=== PATIENT | male | born 1975 | race African-American/Black ===

== ENCOUNTER 2019-11-27 14:38 | Inpatient (IN) | payer OTHER ==
--- NOTE | 2019-11-27 15:06 | PDOC ---
History of Present Illness - General Chief Complaint: Blood Sugar Problem Stated Complaint: BLOOD SUGAR PROBLEM Time Seen by Provider: 11/27/19 15:04 History Source: Patient Exam Limitations: No Limitations - History of Present Illness Initial Comments: 11/27/19 15:06 44yM w PMHx HTN, morbid obesity presenting w 2wk generalized weakness, polyuria, polydipsia, persistent mild lower abd pain. Doesn't remember when he last had a BM. Had T2DM in the past, stopped taking meds because A1C was low and glucose well controlled. EMS on scene measured BG above limits >600. Denies fever, vomiting, chest pain, SOB, dysuria. Past History - Medical History Allergies/Adverse Reactions: Allergies Allergy/AdvReac Type Severity Reaction Status Date / Time No Known Allergies Allergy Verified 11/27/19 16:18 - Psycho-Social/Smoking History Smoking History: Never smoked - Substance Abuse Hx (Audit-C & DAST Scrn) How often the patient has a drink containing alcohol: Never Score: In Men: 4 or > Positive; In Women: 3 or > Positive: 0 Screen Result (Pos requires Nsg. Audit-10AR): Negative Review of Systems - Review of Systems Constitutional: No: Chills, Fever HEENTM: No: Eye Pain, Nose Pain Respiratory: No: Cough, Shortness of Breath Cardiac (ROS): No: Chest Pain, Lightheadedness ABD/GI: Yes: Constipated, Nausea. No: Diarrhea, Vomiting : Yes: Frequency. No: Burning, Dysuria Musculoskeletal: No: Back Pain, Joint Pain Integumentary: No: Bruising, Dryness Neurological: No: Headache, Seizure Psychiatric: No: Anxiety, Depression Endocrine: No: Intolerance to Cold, Intolerance to Heat Hematologic/Lymphatic: No: Anemia, Blood Clots *Physical Exam - Vital Signs Last Vital Signs Temp Pulse Resp BP Pulse Ox 98 F 120 H 26 H 125/62 96 11/27/19 14:46 11/27/19 14:46 11/27/19 14:46 11/27/19 14:46 11/27/19 14:46 - Physical Exam General Appearance: Yes: Nourished, Appropriately Dressed, Mild Distress HEENT: positive: EOMI, CALIN, Normal Voice, Hearing Grossly Normal. negative: Scleral Icterus (R), Scleral Icterus (L) Respiratory/Chest: positive: Lungs Clear, Normal Breath Sounds, Rapid RR. negative: Chest Tender, Respiratory Distress, Crackles, Rales, Rhonchi, Stridor, Wheezing Cardiovascular: positive: Regular Rhythm, S1, S2, Tachycardia. negative: Murmur Gastrointestinal/Abdominal: positive: Normal Bowel Sounds, Tender (mild diffuse lower), Flat, Soft, Other (L groin purulent discharge) Extremity: positive: Delayed Capillary Refill Integumentary: positive: Normal Color, Dry, Warm. negative: Rash Neurologic: positive: Fully Oriented, Alert, Normal Mood/Affect, Normal Response, Responsive ED Treatment Course - LABORATORY CBC & Chemistry Diagram: 11/27/19 16:33 11/27/19 16:33 Medical Decision Making - Medical Decision Making 11/27/19 15:45 EKG - sinus tachycardia, HR 114, QTc 454, no ST changes CXR - cardiomegaly, clear lung barron CT A/P WBC 12, pH 7.31, ketone 76, K 5.8 hemolyzed --- 44yM w PMHx HTN, morbid obesity presenting w 2wk generalized weakness, polyuria, polydipsia, persistent mild lower abd pain Sepsis 2/2 purulent L groin infection vs hyperglycemia BG 606. Also has BECCA Cr 1.6 likely d/t dehydration. No evidence of DKA (pH>7.3, bicarb>18) vs PNA (clear XR) vs ACS (neg trop) K 5.8 hemolyzed Given 3L fluids, vanc, zosyn, zofran, 10 insulin Admit tele hospitalist for sepsis, hyperglycemia BECCA No PCP Signed out to night team - pending CT A/P for abd pain - repeat BMP (check hemolyzed K) at 19:00, BGM q2h Discharge - Discharge Information Problems reviewed: Yes Clinical Impression/Diagnosis: Infection, Hyperglycemia, BECCA (acute kidney injury) Sepsis Qualifiers: Sepsis type: sepsis due to unspecified organism Sepsis acute organ dysfunction status: unspecified Qualified Code(s): A41.9 - Sepsis, unspecified organism Condition: Improved - Follow up/Referral - Patient Discharge Instructions - Post Discharge Activity
[2019-11-27] MEDS ORDERED: SODIUM CHLORIDE 0.9% 500 ML INFUS.BAG IV ONE (15:17)
[2019-11-27] MEDS ORDERED: ONDANSETRON 4 MG/2 ML VIAL IVPUSH ONE ×2 (15:19→19:52)
[2019-11-27] MEDS ORDERED: VANCOMYCIN 1 GM in D5W (PRE-DOCKED) 1,000 MG/250 ML IVPB ONE (15:19)
[2019-11-27] MEDS ORDERED: PIPERACILLIN/TAZOB 4.5 GM 4.5 GM in DEXTROSE 5%-WATER 100 ML IVPB ONE (15:19)
[2019-11-27] MEDS ORDERED: morphine CARPU-JECT 4 MG/1 ML DISP.SYRIN IVPUSH ONE (15:49)
[2019-11-27] MEDS ORDERED: TAZOB IVPB ONE (15:49)
[2019-11-27] MEDS ORDERED: PIPERACILLIN IVPB ONE (15:49)
[2019-11-27] MEDS ORDERED: VANCOMYCIN 500 MG VIAL (RESTRICTED TO ID ONLY) ONE (15:49)
[2019-11-27] MEDS ORDERED: ONDANSETRON *ODT* 4 MG TABLET ONE (15:49)
--- NOTE | 2019-11-27 17:00 | PDOC ---
Documentation entered by Karla Bianchi SCRIBE, acting as scribe for Óscar Rosario MD. Óscar Rosario MD: This documentation has been prepared by the Arias zabala Xhesika, SCRIBE, under my direction and personally reviewed by me in its entirety. I confirm that the documentation accurately reflects all work, treatment, procedures, and medical decision making performed by me. Attending Attestation - Resident Resident Name: Ander Jimenez - ED Attending Attestation I have performed the following: I have examined & evaluated the patient, The case was reviewed & discussed with the resident, I agree w/resident's findings & plan, Exceptions are as noted - HPI HPI: 11/27/19 15:13 The patient is a 44y/o M with a pmh of T2DM (stopped taking meds because A1C was low and glucose well controlled) and morbid obesity who presents to the ED with 2 weeks of generalized weakness, polyuria, excessive thirst, and lower abdominal pain. Pt notes that today he checked his sugar and found it to be too high to register on the machine. Pt denies chest pain, SOB, headache or dizziness. Denies fevers, chills, cough, N/V/D. Denies any other complaints. Allergies: NKDA - Physicial Exam PE: 11/27/19 17:01 See resident exam - Critical Care Time Total Critical Care Time: 30 Critical Care Statement: The care of this patient involved high complexity decision making to prevent further life threatening deterioration of the patient's condition and/or to evaluate & treat vital organ system(s) failure or risk of failure. - Medical Decision Making 11/27/19 17:01 44 M with elevated sugar, suspect DKA. Also evaluate for infectious process. - Labs, Ketones, VBG - CTAP - IVF, insulin as needed 11/27/19 17:52 Pt with glucose 606, AG 17, no acidosis on VBG, + ketones Likely mild DKA Will administer insulin 10mg IV and continue IV hydration Discharge - Discharge Information Problems reviewed: Yes Clinical Impression/Diagnosis: Infection, Hyperglycemia, BECCA (acute kidney injury) Sepsis Qualifiers: Sepsis type: sepsis due to unspecified organism Sepsis acute organ dysfunction status: unspecified Qualified Code(s): A41.9 - Sepsis, unspecified organism Condition: Stable - Follow up/Referral - Patient Discharge Instructions - Post Discharge Activity
[2019-11-27 17:09] LABS: VENOUS BASE EXCESS -8.7 mmol/L (-2-2); VENOUS O2 SATURATION 52.8 % (70-80); VENOUS PCO2 33.1 mmHg (38-52); VENOUS PH 7.317 (7.310-7.410)
[2019-11-27 17:17] LABS: BASO % 0.3 % (0-2.0); EOS % 0.3 % (0-4.5); HEMATOCRIT 38.8 % (35.4-49); HEMOGLOBIN 12.3 GM/dL (11.7-16.9); INR 1.09 (0.83-1.09); LYMPH % 11.5 % (8-40); MCH 27.3 pg (25.7-33.7); MCHC 31.6 g/dl (32.0-35.9); MEAN CELL VOLUME 86.4 fl (80-96); MEAN PLT VOLUME 9.1 fl (7.5-11.1); MONO % 10.9 % (3.8-10.2); PLATELET COUNT 426 K/MM3 (134-434); PROTHROMBIN TIME (PATIENT) 12.9 SEC (9.7-13.0); RBC 4.48 M/mm3 (4.00-5.60); RDW 14.4 % (11.9-15.9); WHITE BLOOD COUNT 12.5 K/mm3 (4.0-10.0)
[2019-11-27 17:19] LABS: ACTIVATED PTT 23.8 SECONDS (25.2-36.5)
[2019-11-27 17:43] LABS: BILIRUBIN,TOTAL 0.4 mg/dL (0.2-1); BLOOD UREA NITROGEN 18.2 mg/dL (7-18); CALCIUM 9.6 mg/dL (8.5-10.1); CREATININE 1.6 mg/dL (0.55-1.3); POTASSIUM 5.8 mmol/L (3.5-5.1); TOT PROT 9.2 g/dl (6.4-8.2)
[2019-11-27] MEDS ORDERED: INSULIN REGULAR HUMAN 100 UNITS/ML *VIAL IVPUSH ONE (17:48)
[2019-11-27] MEDS ORDERED: LACTATED RINGERS SOLUTION 1000 ML INFUS.BAG IV ONE (17:48)
[2019-11-27] MEDS ORDERED: INSULIN REGULAR HUMAN 100 UNITS/ML *VIAL ONE (18:10)
--- NOTE | 2019-11-27 19:39 | PDOC ---
*Physical Exam - Vital Signs Last Vital Signs Temp Pulse Resp BP Pulse Ox 98 F 111 H 24 H 122/67 96 11/27/19 14:46 11/27/19 16:55 11/27/19 17:04 11/27/19 17:04 11/27/19 14:46 ED Treatment Course - LABORATORY CBC & Chemistry Diagram: 11/27/19 16:33 11/28/19 04:00 - ADDITIONAL ORDERS Additional order review: Laboratory Results 11/27/19 11/27/19 11/27/19 16:34 16:33 16:33 PT with INR INR PTT (Actin FS) VBG pH 7.317 POC VBG pCO2 33.1 L POC VBG pO2 30.0 VBG HCO3 16.6 L VBG O2 Sat (Emmanuel) 52.8 L VBG Base Excess -8.7 L Sodium 133 L Potassium 5.8 H Chloride 98 Carbon Dioxide 19 L Anion Gap 17 H BUN 18.2 H Creatinine 1.6 H Est GFR (CKD-EPI)AfAm 59.00 Est GFR (CKD-EPI)NonAf 50.91 Random Glucose 606 H* Lactic Acid 2.0 Calcium 9.6 Total Bilirubin 0.4 AST 9 L ALT 12 L Alkaline Phosphatase 116 Troponin I Total Protein 9.2 H Albumin 2.0 L Beta-Hydroxybutyrate 76.7 H 11/27/19 11/27/19 16:33 16:33 PT with INR 12.90 INR 1.09 PTT (Actin FS) 23.8 L VBG pH POC VBG pCO2 POC VBG pO2 VBG HCO3 VBG O2 Sat (Emmanuel) VBG Base Excess Sodium Potassium Chloride Carbon Dioxide Anion Gap BUN Creatinine Est GFR (CKD-EPI)AfAm Est GFR (CKD-EPI)NonAf Random Glucose Lactic Acid Calcium Total Bilirubin AST ALT Alkaline Phosphatase Troponin I < 0.02 Total Protein Albumin Beta-Hydroxybutyrate 11/27/19 16:33 RBC 4.48 MCV 86.4 MCHC 31.6 L RDW 14.4 MPV 9.1 Neutrophils % 77.0 Lymphocytes % 11.5 Monocytes % 10.9 H Eosinophils % 0.3 Basophils % 0.3 - Medications Given in the ED: ED Medications Discontinued Medications Generic Name Dose Route Start Last Admin Trade Name Freq PRN Reason Stop Dose Admin Piperacillin Sod/Tazobactam 100 mls @ 200 mls/hr 11/27/19 15:19 11/27/19 16:00 Sod 4.5 gm/ Dextrose IVPB 11/27/19 15:48 200 mls/hr ONCE ONE Administration Protocol Insulin Human Regular 10 units 11/27/19 17:48 11/27/19 18:16 Novolin R Vial *For Ivpush Or Iv Drip Only* IVPUSH 11/27/19 17:49 10 units ONCE ONE Administration Morphine Sulfate 4 mg 11/27/19 15:49 11/27/19 16:21 Morphine Injection - IVPUSH 11/27/19 15:50 Not Given ONCE ONE Ondansetron HCl 4 mg 11/27/19 15:19 11/27/19 16:05 Zofran Injection IVPUSH 11/27/19 15:20 4 mg ONCE ONE Administration Sodium Chloride 2,000 ml 11/27/19 15:17 11/27/19 15:54 Normal Saline - IV 11/27/19 15:18 2,000 ml ONCE ONE Administration Vancomycin HCl 1,000 mg 11/27/19 15:19 11/27/19 16:53 Vancomycin (Pre-Docked) IVPB 11/27/19 15:20 1,000 mg ONCE ONE Administration Protocol Medical Decision Making - Medical Decision Making 11/27/19 15:45 EKG - sinus tachycardia, HR 114, QTc 454, no ST changes CXR - cardiomegaly, clear lung barron CT A/P WBC 12, pH 7.31, ketone 76, K 5.8 hemolyzed --- 44M w PMHx HTN, morbid obesity presenting w 2wk generalized weakness, polyuria, polydipsia, persistent mild lower abd pain Sepsis 2/2 purulent L groin infection vs hyperglycemia BG 606. Also has BECCA Cr 1.6 likely d/t dehydration. No evidence of DKA (pH>7.3, bicarb>18) vs PNA (clear XR) vs ACS (neg trop) K 5.8 hemolyzed Given 3L fluids, vanc, zosyn, zofran, 10 insulin Admit tele hospitalist for sepsis, hyperglycemia BECCA No PCP Signed out from day team CT abdomen/pelvis demonstrates multiple upper thigh subcutaneous lesions consistent with abscess formation, with the largest diameter at 3cm. Incision and drainage was completed on 5 abscesses of the superiomedial legs bilaterally (3 right, 2 left), with purulent drainage. Patient admitted for possible sepsis secondary to multiple cutaneous abscesses, hyperglycemia, and BECCA. Discharge - Discharge Information Problems reviewed: Yes Clinical Impression/Diagnosis: Infection, Hyperglycemia, BECCA (acute kidney injury) Sepsis Qualifiers: Sepsis type: sepsis due to unspecified organism Sepsis acute organ dysfunction status: unspecified Qualified Code(s): A41.9 - Sepsis, unspecified organism Condition: Improved - Admission Yes - Follow up/Referral - Patient Discharge Instructions - Post Discharge Activity
[2019-11-27 20:29] LABS: URINE APPEARANCE CLEAR; URINE BILIRUBIN NEGATIVE (NEGATIVE); URINE COLOR YELLOW; URINE GLUCOSE (UA) 3+ (NEGATIVE); URINE KETONE 3+ (NEGATIVE); URINE LEUK ESTERASE NEGATIVE (NEGATIVE); URINE NITRITE NEGATIVE (NEGATIVE); URINE PROTEIN NEGATIVE (NEGATIVE); URINE UROBILINOGEN 0.2 mg/dL (0.2-1.0)
[2019-11-27 20:57] LABS: BLOOD UREA NITROGEN 15.6 mg/dL (7-18); CALCIUM 8.8 mg/dL (8.5-10.1); CREATININE 1.5 mg/dL (0.55-1.3); POTASSIUM 4.8 mmol/L (3.5-5.1)
[2019-11-27] MEDS ORDERED: LIDOCAINE 1%/EPI 1:100000 (50 ML MULTI DOSE VIAL) INF ONE (22:12)
[2019-11-27] MEDS ORDERED: LIDOCAINE 1%/EPI 1:100000 (20 ML MULTI DOSE VIAL) ONE (22:28)
--- NOTE | 2019-11-27 23:20 | PN ---
Teaching Attending Note Name of Resident: Teresa Adair ATTENDING PHYSICIAN STATEMENT I saw and evaluated the patient. I reviewed the resident's note and discussed the case with the resident. I agree with the resident's findings and plan as documented. SUBJECTIVE: Patient is a 44 year old man with a PMH of NIDDM (stopped taking meds because HbA1C was low and glucose well controlled) and Morbid obesity who presents to the ER with 2 weeks of generalized weakness, polyuria, excessive thirst, and lower abdominal pain. He checked his sugar today and found it to be too high to register on the machine. Patient denies chest pain, shortness of breath, headache, palpitations, dizziness, fever, chills, nausea, vomiting, diarrhea, constipation, dysuria, frequency, urgency, melena, hematochezia or hematuria. Denies alcohol, tobacco or illicit drug use. No sick contacts or recent travels. Family history DM in both parents. Patient states he was unaware of the left groin purulent discharge that was noted on arrival. OBJECTIVE: Alert and morbidly obese Vital Signs Period Temp Pulse Resp BP Sys/Chambers Pulse Ox Last 24 Hr 97.9 F-98 F 105-120 20-26 122-142/62-70 96-100 HEENT: No Jaundice, eye redness or discharge, PERRLA, EOMI. Normocephalic, atraumatic. External ears are normal and hearing is grossly intact. No nasal discharge. Neck: Supple, nontender. No palpable adenopathy or thyromegaly. No JVD Chest: Good effort. Clear to auscultation and percussion. Heart: Regular. No S3, rub or murmur Abdomen: Not distended, soft, lower abdominal tenderness and no HSM. No rebound or guarding. Normal bowel sounds. Ext: Peripheral pulses intact. No leg edema. Left groin purulent discharge. Skin: Warm and dry. No petechiae, rash or ecchymosis. Neuro: Alert. Oriented x3. CN 2-12 grossly intact. Sensation grossly intact in all four extremities and DTR are symmetric. Psych: Appropriate mood and affect. Good insight. Home Medications Medication Instructions Recorded NK [No Known Home Medication] 11/27/19 Abnormal Lab Results 11/27/19 11/27/19 11/27/19 16:33 16:33 16:33 WBC 12.5 H MCHC 31.6 L Absolute Neuts (auto) 9.6 H Monocytes % 10.9 H PTT (Actin FS) 23.8 L POC VBG pCO2 33.1 L VBG HCO3 16.6 L VBG O2 Sat (Emmanuel) 52.8 L VBG Base Excess -8.7 L Sodium Potassium Carbon Dioxide Anion Gap BUN Creatinine Random Glucose AST ALT Total Protein Albumin Beta-Hydroxybutyrate Urine Glucose (UA) Urine Ketones 11/27/19 11/27/19 11/27/19 16:33 19:55 19:55 WBC MCHC Absolute Neuts (auto) Monocytes % PTT (Actin FS) POC VBG pCO2 VBG HCO3 VBG O2 Sat (Emmanuel) VBG Base Excess Sodium 133 L Potassium 5.8 H Carbon Dioxide 19 L 19 L Anion Gap 17 H BUN 18.2 H Creatinine 1.6 H 1.5 H Random Glucose 606 H* 373 H AST 9 L ALT 12 L Total Protein 9.2 H Albumin 2.0 L Beta-Hydroxybutyrate 76.7 H Urine Glucose (UA) 3+ H Urine Ketones 3+ H Current Medications Generic Name Dose Route Start Last Admin Trade Name Freq PRN Reason Stop Dose Admin Heparin Sodium (Porcine) 5,000 unit 11/28/19 06:00 Heparin - SQ TID EDWIGE Sodium Chloride 1,000 mls @ 75 mls/hr 11/28/19 01:45 11/28/19 02:28 Normal Saline - IV 75 mls/hr ASDIR EDWIGE Administration Piperacillin Sod/Tazobactam 50 mls @ 100 mls/hr 11/28/19 01:48 Sod 3.375 gm/ Dextrose IVPB Q6H EDWIGE Protocol Piperacillin Sod/Tazobactam 50 mls @ 100 mls/hr 11/28/19 02:00 11/28/19 02:29 Sod 3.375 gm/ Dextrose IVPB 11/28/19 21:29 100 mls/hr Q6H-IV EDWIGE Administration Protocol Vancomycin HCl 1,250 mg/ 250 mls @ 166.667 mls/hr 11/28/19 04:00 Dextrose IVPB 11/28/19 17:29 Q12H EDWIGE Insulin Aspart 1 vial 11/28/19 07:00 Novolog Vial Sliding Scale - SQ ACHS [facility] Protocol Polyethylene Glycol 17 gm 11/28/19 01:46 Miralax (For Daily Use) - PO DAILY PRN CONSTIPATION Vancomycin HCl 1,000 mg 11/28/19 16:00 Vancomycin (Pre-Docked) IVPB DAILY EDWIGE Protocol ASSESSMENT AND PLAN: 1. Sepsis due to abdominal wall/upper thigh abscesses - CT abdomen/pelvis with IV contrast shows possible right lower anterior pelvis wall abscesses, upper thigh abscesses, fatty liver and enlarged inguinal lymphnodes. No acute abnormality on CXR. Electrolyte abnormalities resolved after he got IV insulin and IV NS in the ER. Sepsis workup done and patient started on IV Vancomycin, IV Zosyn and IV NS. Consult ID and Surgery. EKG shows sinus tachycardia at 114/minute and QTc [address]-T wave changes. Initial troponin is negative. Will avoid drugs that may prolong QTc. Treat constipation with Miralax 17 gm bid. Viral testing for COVID-19 ordered and patient placed on airborne, droplet and contact isolation. Will continue comprehensive care for all of patients comorbid conditions. 2. Mild DKA Improved after initial dose of IV insulin in the ER. Will get HbA1c, continue IV NS, monitor and replete potassium, implement sliding scale insulin regimen and consult Endocrine to craft an appropriate outpatient regime n. Provide comprehensive diabetes care with patient teaching and counseling about the importance of adherence to prescribed diabetes regimen, euglycemia, eye care and foot care. 3. Hypoalbuminemia - Possibly due to combined effects of malnutrition and inflammation associated with comorbid conditions. Will ensure adequate dietary protein intake and also consult tour leader. 4. BECCA Has risk factors for CKD. Likely dehydrated. Will get kidney sonogram, hydrate with IV NS, monitor urine output and consult Nephrology. Elevated globulins is unexplained - will monitor and get SPEP as well as urine protein/creatinine ratio. Avoid nephrotoxic agents such as NSAIDS, aminoglycosides, contrast dyes and certain Alternative medicine products. Will benefit from outpatient ACEI/ARB therapy. 5. Morbid obesity Counseled on the risks associated with obesity. Will provide patient all the necessary assistance, counseling and positive reinforcement to facilitate weight loss. Consult tour leader. 6. DVT prophylaxis - Heparin 5000u sq tid. 7. Advance directives - Full code
[2019-11-28] MEDS ORDERED: POLYETHYLENE GLYCOL 3350 119 GM BTL PO PRN (01:46)
[2019-11-28] MEDS ORDERED: DEXTROSE 5%-WATER - 50 ML IVPB ONE ×4 (02:15→20:42)
[2019-11-28] MEDS ORDERED: PIPERACILLIN/TAZOBACTAM 3.375 GM VIAL IVPB ONE ×4 (02:15→20:42)
[2019-11-28] MEDS: SODIUM CHLORIDE 1,000 ML IV SCH (02:28)
[2019-11-28] MEDS: PIPERACILLIN/TAZOB 3.375 GM 3.375 GM in DEXTROSE 5%-WATER - 50 ML IVPB SCH ×5 (02:29→21:39)
[2019-11-28 03:05] VITALS: BMI 53.8
--- NOTE | 2019-11-28 03:28 | HP ---
CHIEF COMPLAINT: 2 weeks of weakness, polyuria, polydipsia, lower abdominal pain PCP: unknown HISTORY OF PRESENT ILLNESS: Merlyn Reno is a 44 y/o male with a PMX if T2DM (currently on no meds for DM), hypertension, and morbid obesity who presents with 2 weeks of weakness, polyuria, polydipsia, lower abdominal pain, nausea, vomiting, constipation, dry mouth and lack of appetite. Patient states that he had similar symptoms when he was last hospitalized years ago and was subsquently diagnosed with diabetes. Patient is also presenting with a large draining abscess in his left groin. Patient denies past surgical history and states that he his currently not taking any medications. Patient endorses a history of DM in both his mother and father. ER course was notable for: (1) left groin abscess drainage (2) EKG done: sinus tachycardia. QTc 454 (3) vancomycin and zosyn abx given Recent Travel: none PAST MEDICAL HISTORY: -HTN -DM PAST SURGICAL HISTORY: -none Social History: Smoking:denies Alcohol: denies Drugs: denies Allergies Shellfish (Verified 11/27/19 16:18) HOME MEDICATIONS: Home Medications Medication Instructions Recorded NK [No Known Home Medication] 11/27/19 REVIEW OF SYSTEMS CONSTITUTIONAL: +weakness, loss of appetite, malaise Absent: fever, chills, diaphoresis, weight change HEENT: Absent: rhinorrhea, nasal congestion, throat pain, throat swelling, difficulty swallowing CARDIOVASCULAR: Absent: chest pain, syncope, palpitations, irregular heart rate, lightheadedness, peripheral edema RESPIRATORY: Absent: cough, shortness of breath, dyspnea with exertion, orthopnea, wheezing, stridor, hemoptysis GASTROINTESTINAL: + abdominal pain, + nausea, + vomiting, + constipation Absent: abdominal distension, melena, hematochezia GENITOURINARY: +frequency Absent: dysuria, urgency, hesitancy, hematuria, flank pain, genital pain MUSCULOSKELETAL: Absent: myalgia, arthralgia, joint swelling, back pain, neck pain SKIN: Absent: rash, itching, pallor HEMATOLOGIC/IMMUNOLOGIC: Absent: easy bleeding, easy bruising, lymphadenopathy, frequent infections ENDOCRINE: Absent: unexplained weight gain, unexplained weight loss, heat intolerance, cold intolerance NEUROLOGIC: Absent: headache, focal weakness or paresthesias, dizziness, unsteady gait, seizure, mental status changes, bladder or bowel incontinence PSYCHIATRIC: Absent: anxiety, depression, suicidal or homicidal ideation, hallucinations. PHYSICAL EXAMINATION Vital Signs - 24 hr 11/27/19 11/27/19 11/27/19 14:46 16:55 17:04 Temperature 98 F Pulse Rate 120 H Pulse Rate [ 111 H Apical] Respiratory 26 H 24 H Rate Blood Pressure 125/62 Blood Pressure 122/67 [Left Arm] O2 Sat by Pulse 96 Oximetry (%) 11/27/19 11/27/19 11/28/19 21:45 23:12 01:13 Temperature 97.9 F Pulse Rate Pulse Rate [ 108 H 105 H Apical] Respiratory 20 21 H Rate Blood Pressure Blood Pressure 142/65 132/70 [Left Arm] O2 Sat by Pulse 100 100 98 Oximetry (%) 11/28/19 11/28/19 01:31 03:05 Temperature 98.0 F 98.0 F Pulse Rate 109 H 112 H Pulse Rate [ Apical] Respiratory 20 20 Rate Blood Pressure 128/67 128/67 Blood Pressure [Left Arm] O2 Sat by Pulse 98 98 Oximetry (%) GENERAL: AAOx3, patient appears uncomfortable;morbidly obese habitus HEENT: NCAT, PERRLA, EOMI, sclera anicteric, conjunctiva clear, oropharynx clear w/o exudates. MMM. NECK: Normal ROM, supple, no lymphadenopathy, JVD, or masses LUNGS: CTABL no wheezes/ rhonchi/ rales. HEART: RRR, normal S1 S2, no M/R/G, peripheral pulses 2+ and equal b/l ABDOMEN: Soft, diffuse tenderness in the LLQ and RLQ, + BS. No guarding or rebound. No hepatomegaly or splenomegaly. MSK: ROM WNL EXTREMITIES: Normal inspection. No peripheral edema. No clubbing or cyanosis. NEUROLOGICAL: CN II-XII intact. Normal speech, normal gait, no focal sensorimotor deficits. SKIN: Warm, Dry, decreased skin turgor, draining abscess in left groin Laboratory Results - last 24 hr CBC, BMP 11/27/19 16:33 11/27/19 11/27/19 11/27/19 16:33 16:33 16:33 WBC 12.5 H RBC 4.48 Hgb 12.3 Hct 38.8 MCV 86.4 MCH 27.3 MCHC 31.6 L RDW 14.4 Plt Count 426 MPV 9.1 Absolute Neuts (auto) 9.6 H Neutrophils % 77.0 Lymphocytes % 11.5 Monocytes % 10.9 H Eosinophils % 0.3 Basophils % 0.3 Nucleated RBC % 0 PT with INR 12.90 INR 1.09 PTT (Actin FS) 23.8 L VBG pH POC VBG pCO2 POC VBG pO2 VBG HCO3 VBG O2 Sat (Emmanuel) VBG Base Excess Sodium Potassium Chloride Carbon Dioxide Anion Gap BUN Creatinine Est GFR (CKD-EPI)AfAm Est GFR (CKD-EPI)NonAf Random Glucose Lactic Acid Calcium Total Bilirubin AST ALT Alkaline Phosphatase Troponin I < 0.02 Total Protein Albumin Beta-Hydroxybutyrate Urine Color Urine Appearance Urine pH Ur Specific [place] Urine Protein Urine Glucose (UA) Urine Ketones Urine Blood Urine Nitrite Urine Bilirubin Urine Urobilinogen Ur Leukocyte Esterase Ur Random Sodium Ur Random Potassium Ur Random Chloride 11/27/19 11/27/19 11/27/19 16:33 16:33 16:34 WBC RBC Hgb Hct MCV MCH MCHC RDW Plt Count MPV Absolute Neuts (auto) Neutrophils % Lymphocytes % Monocytes % Eosinophils % Basophils % Nucleated RBC % PT with INR INR PTT (Actin FS) VBG pH 7.317 POC VBG pCO2 33.1 L POC VBG pO2 30.0 VBG HCO3 16.6 L VBG O2 Sat (Emmanuel) 52.8 L VBG Base Excess -8.7 L Sodium 133 L Potassium 5.8 H Chloride 98 Carbon Dioxide 19 L Anion Gap 17 H BUN 18.2 H Creatinine 1.6 H Est GFR (CKD-EPI)AfAm 59.00 Est GFR (CKD-EPI)NonAf 50.91 Random Glucose 606 H* Lactic Acid 2.0 Calcium 9.6 Total Bilirubin 0.4 AST 9 L ALT 12 L Alkaline Phosphatase 116 Troponin I Total Protein 9.2 H Albumin 2.0 L Beta-Hydroxybutyrate 76.7 H Urine Color Urine Appearance Urine pH Ur Specific [place] Urine Protein Urine Glucose (UA) Urine Ketones Urine Blood Urine Nitrite Urine Bilirubin Urine Urobilinogen Ur Leukocyte Esterase Ur Random Sodium Ur Random Potassium Ur Random Chloride 11/27/19 11/27/19 11/28/19 19:55 19:55 00:00 WBC RBC Hgb Hct MCV MCH MCHC RDW Plt Count MPV Absolute Neuts (auto) Neutrophils % Lymphocytes % Monocytes % Eosinophils % Basophils % Nucleated RBC % PT with INR INR PTT (Actin FS) VBG pH POC VBG pCO2 POC VBG pO2 VBG HCO3 VBG O2 Sat (Emmanuel) VBG Base Excess Sodium 138 Potassium 4.8 Chloride 104 Carbon Dioxide 19 L Anion Gap 15 BUN 15.6 Creatinine 1.5 H Est GFR (CKD-EPI)AfAm 63.79 Est GFR (CKD-EPI)NonAf 55.04 Random Glucose 373 H Lactic Acid Calcium 8.8 Total Bilirubin AST ALT Alkaline Phosphatase Troponin I Total Protein Albumin Beta-Hydroxybutyrate Urine Color Yellow Urine Appearance Clear Urine pH 5.0 Ur Specific [place] 1.031 Urine Protein Negative Urine Glucose (UA) 3+ H Urine Ketones 3+ H Urine Blood Negative Urine Nitrite Negative Urine Bilirubin Negative Urine Urobilinogen 0.2 Ur Leukocyte Esterase Negative Ur Random Sodium 38 L Ur Random Potassium 38.0 Ur Random Chloride 45 L ASSESSMENT/PLAN: 44 year old male with PMX HTN, DM2 presenting with 2 weeks of generalized weakness, polyuria, excessive thirst, and lower abdominal pain. Admitted for sepsis secondary to pelvic abscess. #Sepsis Secondary to Pelvic Abscess -CT abdomen/pelvis w/ contrast: possible right lower anterior pelvis wall abscesses, upper thigh abscesses, fatty liver and enlarged inguinal lymph nodes -IV abx: Zosyn and Vancomycin -surgery consult appreciated -ID consult appreciated -IVF started with NS -NPO -Miralax for constipation BID -QTc 454 upon admission -avoid QTC prolonging drugs #BECCA -IVF started with NS -Urine electroyles ordered -urine protein:Cr ordered -nephro consult appreciated -renal ultrasound ordered -SPEP ordered -searum protein electrophoresis ordered -pt will benefit from ACEI/ARB when discharged -Avoid nephrotoxic agents #Diabetes Mellitus -mild DKA upon admission which improved in the ER with IV insulin -ISS BGM ordered -HgA1c ordered -endocrine consult appreciated #Hypertension -monitor blood pressure readings #FEN -NS IVF ordered -monitor electrolytes -NPO #Prophylaxis -DVT: Heparin 5000u sq tid disposition: monitor in telemetry Family Medical History Family History: As Documented Visit type - Emergency Visit Emergency Visit: Yes ED Registration Date: 11/27/19 Care time: The patient presented to the Emergency Department on the above date and was hospitalized for further evaluation of their emergent condition. - New Patient This patient is new to me today: Yes Date on this admission: 11/28/19 - Critical Care Critical Care patient: No ATTENDING PHYSICIAN STATEMENT I saw and evaluated the patient. I reviewed the resident's note and discussed the case with the resident. I agree with the resident's findings and plan as documented. SUBJECTIVE: OBJECTIVE: ASSESSMENT AND PLAN:
[2019-11-28] MEDS: VANCOMYCIN HCL 1,250 MG in DEXTROSE 5%-WATER - 250 ML IVPB SCH ×2 (03:50→16:50)
[2019-11-28 04:55] LABS: BLOOD UREA NITROGEN 12.7 mg/dL (7-18); CALCIUM 8.9 mg/dL (8.5-10.1); CREATININE 1.2 mg/dL (0.55-1.3); POTASSIUM 5.1 mmol/L (3.5-5.1)
[2019-11-28] MEDS: INSULIN SLIDING SCALE (NOVOLOG) 1 VIAL SQ SCH ×5 (06:49→21:38)
[2019-11-28] MEDS: HEPARIN NA (PORCINE) 5,000 UNITS/ML 1ML VIAL SQ SCH ×3 (06:49→21:38)
[2019-11-28 08:23] LABS: BASO % 0.3 % (0-2.0); EOS % 0.7 % (0-4.5); HEMATOCRIT 35.3 % (35.4-49); HEMOGLOBIN 11.5 GM/dL (11.7-16.9); LYMPH % 15.2 % (8-40); MCH 28.2 pg (25.7-33.7); MCHC 32.5 g/dl (32.0-35.9); MEAN CELL VOLUME 86.8 fl (80-96); MEAN PLT VOLUME 8.7 fl (7.5-11.1); MONO % 11.3 % (3.8-10.2); NEUT % 72.5 % (42.8-82.8); PLATELET COUNT 374 K/MM3 (134-434); RBC 4.07 M/mm3 (4.00-5.60); RDW 14.1 % (11.9-15.9); WHITE BLOOD COUNT 12.6 K/mm3 (4.0-10.0)
[2019-11-28 08:28] LABS: ALBUMIN 1.9 g/dl (3.4-5.0); BILIRUBIN,TOTAL 0.4 mg/dL (0.2-1); BLOOD UREA NITROGEN 12.2 mg/dL (7-18); CALCIUM 8.8 mg/dL (8.5-10.1); CREATININE 1.3 mg/dL (0.55-1.3); MAGNESIUM 2.1 mg/dL (1.8-2.4); PHOSPHOROUS 3.3 mg/dL (2.5-4.9); POTASSIUM 4.8 mmol/L (3.5-5.1); TOT PROT 8.4 g/dl (6.4-8.2)
[2019-11-28 08:46] LABS: INR 1.13 (0.83-1.09); PROTHROMBIN TIME (PATIENT) 13.3 SEC (9.7-13.0)
[2019-11-28 08:49] LABS: ACTIVATED PTT 23.8 SECONDS (25.2-36.5)
[2019-11-28] MEDS: POLYETHYLENE GLYCOL 3350 119 GM BTL PO SCH ×2 (09:02→21:38)
--- NOTE | 2019-11-28 10:20 | EKG ---
Test Reason : Blood Pressure : / mmHG Vent. Rate : 114 BPM Atrial Rate : 114 BPM P-R Int : 132 ms QRS Dur : 080 ms QT Int : 330 ms P-R-T Axes : 059 019 019 degrees QTc Int : 454 ms SINUS TACHYCARDIA LOW VOLTAGE QRS NO PREVIOUS ECGS AVAILABLE Confirmed by BARBARA FRANK MD ([id number]) on 11/28/2019 10:19:30 AM Referred By: Confirmed By:BARBARA FRANK MD
--- NOTE | 2019-11-28 10:55 | PN ---
Progress Note (short form) - Note Progress Note: This patient is a 44yom with Pmhx of T2DM (currently on no meds for DM), hypertension, and morbid obesity who presents with 2 weeks of weakness, polyuria, polydipsia, lower abdominal pain, nausea, vomiting, constipation, dry mouth and lack of appetite. Patient is feeling better with NAD. Patient also presented with mild DKA, and was to have smaLL ABSCESSES on his thighs. Vital Signs Temperature 98.0 F 11/28/19 03:05 Pulse Rate 112 H 11/28/19 03:05 Respiratory Rate 20 11/28/19 03:05 Blood Pressure 128/67 11/28/19 03:05 O2 Sat by Pulse Oximetry (%) 98 11/28/19 03:05 Initial Vital Signs Temp Pulse Resp BP Pulse Ox 98 F 120 H 26 H 125/62 96 11/27/19 14:46 11/27/19 14:46 11/27/19 14:46 11/27/19 14:46 11/27/19 14:46 GENERAL: The patient is awake, alert, and fully oriented, in no acute distress. HEAD: Normal with no signs of trauma. EYES: PERRL, extraocular movements intact, sclera anicteric, conjunctiva clear. ENT: Ears normal, oropharynx clear without exudates, moist mucous membranes. NECK: Trachea midline, full range of motion, supple. LUNGS: Breath sounds equal, clear to auscultation bilaterally, no wheezes, no crackles, no accessory muscle use. HEART: Regular rate and rhythm, S1, S2 without murmur, rub or gallop. ABDOMEN: Soft, Nt,ND, large abdomen, no guarding, no rebound, no hepatosplenomegaly, no masses. EXTREMITIES: 2+ pulses, warm, well-perfused, + draining abscesses fro m both thighs. NEUROLOGICAL: Cranial nerves II through XII grossly intact. Normal speech, gait not observed. PSYCH: Normal mood, normal affect. SKIN: Warm, dry, normal turgor, no rashes or lesions noted CBCD WBC 12.6 K/mm3 (4.0-10.0) H 11/28/19 07:05 RBC 4.07 M/mm3 (4.00-5.60) 11/28/19 07:05 Hgb 11.5 GM/dL (11.7-16.9) L 11/28/19 07:05 Hct 35.3 % (35.4-49) L 11/28/19 07:05 MCV 86.8 fl (80-96) 11/28/19 07:05 MCHC 32.5 g/dl (32.0-35.9) 11/28/19 07:05 RDW 14.1 % (11.9-15.9) 11/28/19 07:05 Plt Count 374 K/MM3 (134-434) 11/28/19 07:05 MPV 8.7 fl (7.5-11.1) 11/28/19 07:05 CMP Sodium 139 mmol/L (136-145) 11/28/19 07:05 Potassium 4.8 mmol/L (3.5-5.1) 11/28/19 07:05 Chloride 104 mmol/L (98-107) 11/28/19 07:05 Carbon Dioxide 18 mmol/L (21-32) L 11/28/19 07:05 Anion Gap 16 MMOL/L (8-16) 11/28/19 07:05 BUN 12.2 mg/dL (7-18) 11/28/19 07:05 Creatinine 1.3 mg/dL (0.55-1.3) 11/28/19 07:05 Random Glucose 360 mg/dL (74-106) H 11/28/19 07:05 Calcium 8.8 mg/dL (8.5-10.1) 11/28/19 07:05 Total Bilirubin 0.4 mg/dL (0.2-1) 11/28/19 07:05 AST 7 U/L (15-37) L 11/28/19 07:05 ALT 11 U/L (13-61) L 11/28/19 07:05 Alkaline Phosphatase 100 U/L (45-117) 11/28/19 07:05 Total Protein 8.4 g/dl (6.4-8.2) H 11/28/19 07:05 Albumin 1.9 g/dl (3.4-5.0) L 11/28/19 07:05 CARDIAC ENZYMES Troponin I < 0.02 ng/ml (0.00-0.05) 11/27/19 16:33 Current Medications Generic Name Dose Route Start Last Admin Trade Name Freq PRN Reason Stop Dose Admin Heparin Sodium (Porcine) 5,000 unit 11/28/19 06:00 11/28/19 06:49 Heparin - SQ 5,000 unit TID EDWIGE Administration Sodium Chloride 1,000 mls @ 75 mls/hr 11/28/19 01:45 11/28/19 02:28 Normal Saline - IV 75 mls/hr ASDIR EDWIGE Administration Piperacillin Sod/Tazobactam 50 mls @ 100 mls/hr 11/28/19 01:48 Sod 3.375 gm/ Dextrose IVPB Q6H EDWIGE Protocol Piperacillin Sod/Tazobactam 50 mls @ 100 mls/hr 11/28/19 02:00 11/28/19 09:10 Sod 3.375 gm/ Dextrose IVPB 11/28/19 21:29 100 mls/hr Q6H-IV EDWIGE Administration Protocol Vancomycin HCl 1,250 mg/ 250 mls @ 166.667 mls/hr 11/28/19 04:00 11/28/19 03:50 Dextrose IVPB 11/28/19 17:29 166.667 mls/hr Q12H EDWIGE Administration Insulin Aspart 1 vial 11/28/19 07:00 11/28/19 06:49 Novolog Vial Sliding Scale - SQ 10 units ACHS EDWIGE Administration Protocol Polyethylene Glycol 17 gm 11/28/19 10:00 11/28/19 09:02 Miralax (For Daily Use) - PO Not Given BID EDWIGE Vancomycin HCl 1,000 mg 11/28/19 16:00 Vancomycin (Pre-Docked) IVPB DAILY [facility] Protocol Home Medications Medication Instructions Recorded NK [No Known Home Medication] 11/27/19 Laboratory Tests 11/27/19 11/27/19 11/27/19 16:33 16:33 19:55 Creatinine 1.6 H POC Glucometer Random Glucose 606 H* Troponin I < 0.02 Beta-Hydroxybutyrate 76.7 H Urine Glucose (UA) 3+ H Urine Ketones 3+ H 11/27/19 11/28/19 11/28/19 19:55 04:00 06:47 Creatinine 1.5 H 1.2 POC Glucometer 385 Random Glucose 373 H 358 H Troponin I Beta-Hydroxybutyrate Urine Glucose (UA) Urine Ketones 11/28/19 07:05 Creatinine 1.3 POC Glucometer Random Glucose 360 H Troponin I Beta-Hydroxybutyrate Urine Glucose (UA) Urine Ketones CT abdomen and pelvis with contrast: Ther is no evidence of penumoperitoneum, no abscess or free intraperitoneal fluid or bowel obstruction. Appendix; No obvious pathology no diverticulitis diffuse fatty liver several mildly enlarged bl inguinal lymph nodes mild diffuse urinary bladder thickening which could be possible due chronic on acute cystitis CT abdomen/pelvis w/ contrast: possible right lower anterior pelvis wall abscesses, upper thigh abscesses, fatty liver and enlarged inguinal lymph nodes Assessment and plan: This patient is a 44yom with Pmhx of HTN, T2DM presented to ED. with 2 weeks of generalized weakness, polyuria, excessive thirst, and lower abdominal pain. Admitted for sepsis secondary to having draining abscess. #Sepsis Secondary to draining abscesses, on IV abx Zosyn and Vancomycin. surgery on the case and ID on the case IVF continue # DKA on admission will continue IVF , endocrine is on the case, will start full diabetic diet, and q4h bgms with coverage #QTc 454 avoid QTc prolonging drugs #BECCA will continue IVF #Hypertension: DVT Px: Heparin 5000u sq Visit type - Emergency Visit Emergency Visit: Yes ED Registration Date: 11/27/19 Care time: The patient presented to the Emergency Department on the above date and was hospitalized for further evaluation of their emergent condition. - New Patient This patient is new to me today: Yes Date on this admission: 11/28/19 - Critical Care Critical Care patient: No - Discharge Referral Referred to [facility] No
--- NOTE | 2019-11-28 11:17 | CONSULT ---
- Consultation REQUESTING PROVIDER: Mana SAMSON CONSULT REQUEST: We have been asked to surgically evaluate this patient for an ABSSSI. PCP:Alejandro Aguero HISTORY OF PRESENT ILLNESS: LISA who is a 44 y/o morbidly obese poorly controlled diabetic who presented to the [facility] ED w various c/o's and a blood sugar > than what his home glucometer could measure; he was also c/o and noted to have PMHx: DM PSHx: none known Home Medications Medication Instructions Recorded NK [No Known Home Medication] 11/27/19 Allergies Allergy/AdvReac Type Severity Reaction Status Date / Time No Known Allergies Allergy Verified 11/27/19 16:18 REVIEW OF SYSTEMS: CONSTITUTIONAL: Present: fever, chills, diaphoresis, generalized weakness, malaise, loss of appetite, weight change (gain) CARDIOVASCULAR: Absent: chest pain, syncope, palpitations, irregular heart rate, lightheadedness, peripheral edema RESPIRATORY: Absent: cough, shortness of breath, dyspnea with exertion, wheezing, stridor, hemoptysis GASTROINTESTINAL: Absent: abdominal pain, abdominal distension, nausea, vomiting, diarrhea, constipation, melena, hematochezia GENITOURINARY: Absent: dysuria, frequency, urgency, hesitancy, hematuria, flank pain, genital pain MUSCULOSKELETAL: Absent: myalgia, arthralgia, joint swelling, back pain, neck pain SKIN: Absent: rash, itching, pallor Present: infections HEMATOLOGIC/IMMUNOLOGIC: Absent: easy bleeding, easy bruising, lymphadenopathy NEUROLOGIC: Absent: headache, focal weakness, paresthesias, dizziness, unsteady gait, seizure, mental status changes, bladder or bowel incontinence PSYCHIATRIC: Absent: anxiety, depression, suicidal or homicidal ideation, hallucinations. PHYSICAL EXAM: GENERAL: Awake, alert, and fully oriented, in no acute distress. HEAD: Normal with no signs of trauma. EYES: PERRL, sclera anicteric, conjunctiva clear. NECK: Normal ROM, supple without lymphadenopathy, JVD, or masses. ABDOMEN: Soft, nontender, not distended, normoactive bowel sounds, no guarding, no rebound, no masses. No organomegaly. MUSCULOSKELETAL: Normal ROM at all joints. No bony deformities or tenderness. No CVA tenderness. UPPER EXTREMITIES: 2+ pulses, warm, well-perfused. No cyanosis. Cap refill <2 seconds. No peripheral edema. LOWER EXTREMITIES: 2+ pulses, warm, well-perfused. No calf tenderness. No peripheral edema. NEUROLOGICAL: Normal speech, gait not observed. PSYCH: Cooperative. Good eye contact. Appropriate mood and affect. SKIN: Acute on chronic ABSSSI's of the abdominal pannus and suprapubic areas and b/l medial thighs; no discrete areas of fluctuance amenable to drainage at this time. Vital Signs Temperature 98.0 F 11/28/19 03:05 Pulse Rate 112 H 11/28/19 03:05 Respiratory Rate 20 11/28/19 03:05 Blood Pressure 128/67 11/28/19 03:05 O2 Sat by Pulse Oximetry (%) 98 11/28/19 03:05 Lab Results WBC 12.6 K/mm3 (4.0-10.0) H 11/28/19 07:05 RBC 4.07 M/mm3 (4.00-5.60) 11/28/19 07:05 Hgb 11.5 GM/dL (11.7-16.9) L 11/28/19 07:05 Hct 35.3 % (35.4-49) L 11/28/19 07:05 MCV 86.8 fl (80-96) 11/28/19 07:05 MCHC 32.5 g/dl (32.0-35.9) 11/28/19 07:05 RDW 14.1 % (11.9-15.9) 11/28/19 07:05 Plt Count 374 K/MM3 (134-434) 11/28/19 07:05 INR 1.13 (0.83-1.09) H 11/28/19 07:05 Sodium 139 mmol/L (136-145) 11/28/19 07:05 Potassium 4.8 mmol/L (3.5-5.1) 11/28/19 07:05 Chloride 104 mmol/L (98-107) 11/28/19 07:05 Carbon Dioxide 18 mmol/L (21-32) L 11/28/19 07:05 Anion Gap 16 MMOL/L (8-16) 11/28/19 07:05 BUN 12.2 mg/dL (7-18) 11/28/19 07:05 Creatinine 1.3 mg/dL (0.55-1.3) 11/28/19 07:05 Random Glucose 360 mg/dL (74-106) H 11/28/19 07:05 Calcium 8.8 mg/dL (8.5-10.1) 11/28/19 07:05 CT images and reports reviewed IMP: ABSSSI and DM poorly controlled. PLAN: IVAB's; send C and S of area of drainage; will f/u; no plan for operative intervention at this time. Óscar Sorto MD FACS
--- NOTE | 2019-11-28 14:51 | CON.NEP ---
Consult Consult Specialty:: nephrology Reason for Consultation:: becca - History of Present Illness Chief Complaint: abdominal pain History of Present Illness: This is a 44 year old man with istory of diabetes for 20 years who has not been taking any medication and presented with an abscess and uncontrolled diabetes. He has been very weak and polyuric. Still says he does not feel well. His creat was 1.6 on admission. So nephrology was called - History Source History Provided By: Patient, Medical Record - Past Medical History Cardio/Vascular: Yes: HTN Endocrine: Yes: Diabetes Mellitus - Smoking History Smoking history: Never smoked Have you smoked in the past 12 months: No Home Medications - Allergies Allergies/Adverse Reactions: Allergies Allergy/AdvReac Type Severity Reaction Status Date / Time No Known Allergies Allergy Verified 11/27/19 16:18 - Home Medications Home Medications: Ambulatory Orders NK [No Known Home Medication] 11/27/19 Review of Systems - Review of Systems Constitutional: reports: Malaise, Weakness Eyes: reports: No Symptoms HENT: reports: No Symptoms Neck: reports: No Symptoms Cardiovascular: reports: No Symptoms Respiratory: reports: No Symptoms Gastrointestinal: reports: Abdominal Pain Genitourinary: reports: No Symptoms Breasts: reports: No Symptoms Reported Musculoskeletal: reports: Back Pain Integumentary: reports: Blister Neurological: reports: No Symptoms Endocrine: reports: No Symptoms Hematology/Lymphatic: reports: No Symptoms Psychiatric: reports: No Symptoms Nephrology Consult - Height Height: 5 ft 5 in - Weight Weight: 324 lb - BMI Body Mass Index (BMI): 53.8 - Lab Results CBC,BMP: CBC, BMP 11/28/19 07:05 11/28/19 07:05 Anion Gap: Anion Gap Anion Gap 16 MMOL/L (8-16) 11/28/19 07:05 - Imaging Chest X-ray: Report Reviewed Ultrasound: Report Reviewed (negaative study) - Physical Examination Vital Signs: Vital Signs Temperature 97.9 F 11/28/19 13:56 Pulse Rate 106 H 11/28/19 13:56 Respiratory Rate 18 11/28/19 13:56 Blood Pressure 136/77 11/28/19 13:56 O2 Sat by Pulse Oximetry (%) 98 11/28/19 09:31 Constitutional: Yes: Well Nourished, No Distress, Calm, Obese Eyes: Yes: Conjunctiva Clear HENT: Yes: Atraumatic, Normocephalic Neck: Yes: Supple, Trachea Midline Cardiovascular: Yes: Regular Rate and Rhythm Gastrointestinal: Yes: Normal Bowel Sounds Renal/: Yes: WNL Musculoskeletal: Yes: WNL Extremities: Yes: WNL Edema: No Integumentary: Yes: Rash Neurological: Yes: Alert, Oriented Psychiatric: Yes: Alert, Oriented Assessment/Plan BECCA likely from volume depletion. Initial urinalysis did not show proteinuria. Subsequent protein to creatinine ratio shows an approximate protein of 0.9 grams renal sono is neg PLAN the major treatment is fluids and insulin to control his sugars If necessary place on insulin drip continue antibiotics will need an outpatient ophtho exam MV
[2019-11-28] MEDS ORDERED: VANCOMYCIN 1 GM in D5W (PRE-DOCKED) 1,000 MG/250 ML IVPB SCH (16:00)
[2019-11-28] MEDS ORDERED: PT OWN MED DRAWER 7, Y5N ONE (16:48)
[2019-11-28] MEDS ORDERED: DOCUSATE SODIUM 100 MG CAPSULE (FP) PO ONE (20:47)
[2019-11-28] MEDS ORDERED: METOCLOPRAMIDE HCL INJECTION 10 MG/2 ML VIAL IVPUSH ONE (20:47)
--- NOTE | 2019-11-28 23:07 | PN ---
Progress Note, Physician History of Present Illness: ID CONSULT DICTATED - Current Medication List Current Medications: Active Medications Heparin Sodium (Porcine) (Heparin -) 5,000 unit SQ TID [facility] Last Admin: 11/28/19 21:38 Dose: 5,000 unit Documented by: Sodium Chloride (Normal Saline -) 1,000 mls @ 75 mls/hr IV ASDIR [facility] Last Admin: 11/28/19 02:28 Dose: 75 mls/hr Documented by: Piperacillin Sod/Tazobactam (Sod 3.375 gm/ Dextrose) 50 mls @ 100 mls/hr IVPB Q8H [facility]; Protocol Piperacillin Sod/Tazobactam (Sod 3.375 gm/ Dextrose) 50 mls @ 100 mls/hr IVPB ONCE ONE; Protocol Stop: 11/29/19 03:29 Insulin Aspart ([facility]iding [facility] -[facility] Protocol Last Admin: 11/28/19 21:38 Dose: 8 unit Documented by: Insulin Detemir (Levemir Vial) 25 units SQ AM EDWIGE Insulin Detemir (Levemir Vial) 20 units SQ HS [facility] Polyethylene Glycol (Miralax (For Daily Use) -) 17 gm PO BID [facility] Last Admin: 11/28/19 21:38 Dose: 17 gm Documented by: Vancomycin HCl (Vancomycin (Pre-Docked)) 1,000 mg IVPB DAILY [facility]; Protocol - Objective Vital Signs: Vital Signs Temperature 98.2 F 11/28/19 17:00 Pulse Rate 95 H 11/28/19 17:00 Respiratory Rate 19 11/28/19 17:00 Blood Pressure 124/63 11/28/19 17:00 O2 Sat by Pulse Oximetry (%) 97 11/28/19 17:00 Labs: CBC, BMP 11/28/19 07:05 11/28/19 07:05 INR, PTT INR 1.13 (0.83-1.09) H 11/28/19 07:05
[2019-11-28] MEDS ORDERED: INSULIN (LEVEMIR) 100 UNITS/ML UNITS SQ ONE (23:15)
[2019-11-29] MEDS ORDERED: DEXTROSE 5%-WATER - 50 ML IVPB ONE ×3 (01:58→17:48)
[2019-11-29] MEDS ORDERED: PIPERACILLIN/TAZOBACTAM 3.375 GM VIAL IVPB ONE ×3 (01:58→17:48)
[2019-11-29] MEDS: SODIUM CHLORIDE 1,000 ML IV SCH (02:16)
[2019-11-29] MEDS ORDERED: PIPERACILLIN/TAZOB 3.375 GM 3.375 GM in DEXTROSE 5%-WATER - 50 ML IVPB ONE (03:00)
[2019-11-29] MEDS: INSULIN SLIDING SCALE (NOVOLOG) 1 VIAL SQ SCH ×5 (06:14→22:00)
[2019-11-29] MEDS: HEPARIN NA (PORCINE) 5,000 UNITS/ML 1ML VIAL SQ SCH ×3 (06:15→21:59)
[2019-11-29] MEDS ORDERED: INSULIN (LEVEMIR) 100 UNITS/ML UNITS SQ SCH ×2 (07:00→22:00)
[2019-11-29] MEDS: POLYETHYLENE GLYCOL 3350 119 GM BTL PO SCH ×2 (09:31→22:00)
[2019-11-29] MEDS: PIPERACILLIN/TAZOB 3.375 GM 3.375 GM in DEXTROSE 5%-WATER - 50 ML IVPB SCH ×3 (09:32→18:02)
[2019-11-29] MEDS: VANCOMYCIN 1 GRAM (PRE-DOCKED) 1,000 MG/250 ML BAG IVPB SCH ×2 (09:53→22:00)
--- NOTE | 2019-11-29 10:39 | PN ---
Physical Exam: SUBJECTIVE: Patient seen and examined. He reports feeling a little lightheaded but is stable sitting in the chair. He reports eating breakfast, has mild nausea, and attributes it to constipation. He was given a laxative and will see if he has BM. He denies fever or chills. Abdominal abscess feels better. B/l thigh abscesses are slightly uncomfortable. OBJECTIVE: Vital Signs Period Temp Pulse Resp BP Sys/Chambers Pulse Ox Last 24 Hr 97.4 F-98.3 F 93-106 18-20 124-152/63-92 95-97 GENERAL: A&Ox3, no acute distress, sitting in chair. HEAD: Normal with no signs of trauma. EYES: PERRL, EOMI. ENT: Ears normal, nares patent, moist mucous membranes. NECK: Trachea midline, full range of motion. LUNGS: CTAB, no wheezing or crackles. HEART: RRR, no murmur. ABDOMEN: Soft, nontender, obese, normoactive bowel sounds. EXTREMITIES: Warm, well-perfused, no edema. NEUROLOGICAL: Cranial nerves II through XII grossly intact. Normal speech. PSYCH: Normal mood, normal affect. SKIN: Warm, dry, normal turgor, b/l inner thigh abscesses with minimal serosanginous drainage. Laboratory Results - last 24 hr 11/27/19 11/28/19 11/29/19 16:00 11:39 07:03 POC Glucometer 329 Hemoglobin A1c % 14.0 H COVID-19 (THERESE) Not detected Blood Type Antibody Screen 11/29/19 07:03 POC Glucometer Hemoglobin A1c % COVID-19 (THERESE) Blood Type AB POSITIVE Antibody Screen Negative Active Medications Generic Name Dose Route Start Last Admin Trade Name Freq PRN Reason Stop Dose Admin Heparin Sodium (Porcine) 5,000 unit 11/28/19 06:00 11/29/19 06:15 Heparin - SQ 5,000 unit TID EDWIGE Administration Sodium Chloride 1,000 mls @ 75 mls/hr 11/28/19 01:45 11/29/19 02:16 Normal Saline - IV 75 mls/hr ASDIR EDWIGE Administration Piperacillin Sod/Tazobactam 50 mls @ 100 mls/hr 11/29/19 10:00 11/29/19 09:51 Sod 3.375 gm/ Dextrose IVPB 100 mls/hr Q8H-IV EDWIGE Administration Protocol Vancomycin HCl 1,000 mg in 250 mls @ 166.667 mls/hr 11/29/19 10:00 11/29/19 09:53 Vancomycin (Pre-Docked) IVPB 166.667 mls/hr BID EDWIGE Administration Protocol Insulin Aspart 1 vial 11/28/19 14:00 11/29/19 09:29 Novolog Vial Sliding Scale - SQ 8 unit Q4HWA EDWIGE Administration Protocol Insulin Detemir 25 units 11/29/19 07:00 11/29/19 06:14 Levemir Vial SQ 25 units AM EDWIGE Administration Insulin Detemir 20 units 11/29/19 22:00 Levemir Vial SQ HS EDWIGE Polyethylene Glycol 17 gm 11/28/19 10:00 11/29/19 09:31 Miralax (For Daily Use) - PO 17 gm BID EDWIGE Administration ASSESSMENT/PLAN: Pt is a 44 y/o male with HTN, DM2 presenting with 2 weeks of generalized weakness, polyuria, excessive thirst, and lower abdominal pain. Admitted for sepsis secondary to pelvic abscess. #sepsis 2/2 right pelvic abscess #b/l inner thigh abscesses -CT abdomen/pelvis w/ contrast: possible right lower anterior pelvis wall abscesses, upper thigh abscesses, fatty liver and enlarged inguinal lymph nodes -mild DKA at presentation -improving leukocytosis -pain improved -Vancomycin 11/27 -Zosyn 11/27 -cultures pending with multiple organisms -ID following -surgery consult- f/u cx, no intervention needed at this time -continue IVF, switch to 1/2NS and increase to 175mL/hr -liquid diet #DM2, non-compliant #DKA, resolved -A1C 14 -BG 300s, no gap now -BG 5.1-->3.7 -1x 40 meq KCl PO given decrease in BG over the last 24 hours -Levemir 25U AM started today -Levemir 20U HS started today -monitor BMP -BGMs -SSI -consider lisinopril at d/c for renal protection -endocrine following -will need ophtho and podiatry f/u outpt as well #hypomagnesemia #hypophosphatemia -poor nutritional status -repleted #BECCA, resolved -Cr 1.6-->1.1 -continue IVF -urine protein:Cr 0.9 -renal U/S negative -f/u labs -nephro following #constipation -miralax BID #HTN -consider lisinopril if hypertensive consistently DVT Ppx heparin FEN 1/2NS @175mL/hr monitor BG, Cr liquid diabetic diet dispo tele consider transfer to med/surg when BG improves and less BGMs required Visit type - Emergency Visit Emergency Visit: Yes ED Registration Date: 11/27/19 Care time: The patient presented to the Emergency Department on the above date and was hospitalized for further evaluation of their emergent condition. - New Patient This patient is new to me today: Yes Date on this admission: 11/29/19 - Critical Care Critical Care patient: No ATTENDING PHYSICIAN STATEMENT I saw and evaluated the patient. I reviewed the resident's note and discussed the case with the resident. I agree with the resident's findings and plan as documented. SUBJECTIVE: OBJECTIVE: ASSESSMENT AND PLAN:
[2019-11-29] MEDS: SODIUM CHLORIDE 0.45% 1,000 ML IV SCH ×2 (11:38→22:01)
--- NOTE | 2019-11-29 11:46 | PN ---
Progress Note, Physician History of Present Illness: C/O GENERALIZED WEAKNESS NO C/O THIGH PAIN NO FEVER/ CHILLS BC PRELIM (-) WOUND C/S MIXED - Current Medication List Current Medications: Active Medications Heparin Sodium (Porcine) (Heparin -) 5,000 unit SQ TID [facility] Last Admin: 11/29/19 06:15 Dose: 5,000 unit Documented by: Piperacillin Sod/Tazobactam (Sod 3.375 gm/ Dextrose) 50 mls @ 100 mls/hr IVPB Q8H-IV EDWIGE; Protocol Last Admin: 11/29/19 09:51 Dose: 100 mls/hr Documented by: Vancomycin HCl (Vancomycin (Pre-Docked)) 1,000 mg in 250 mls @ 166.667 mls/hr IVPB BID [facility]; Protocol Last Admin: 11/29/19 09:53 Dose: 166.667 mls/hr Documented by: Sodium Chloride (1/2 Normal Saline) 1,000 mls @ 175 mls/hr IV ASDIR [facility] Last Admin: 11/29/19 11:38 Dose: 175 mls/hr Documented by: Insulin Aspart (Novolog Vial Sliding Scale -) 1 vial SQ Q4HWA [facility]; Protocol Last Admin: 11/29/19 09:29 Dose: 8 unit Documented by: Insulin Detemir (Levemir Vial) 25 units SQ AM [facility] Last Admin: 11/29/19 06:14 Dose: 25 units Documented by: Insulin Detemir (Levemir Vial) 20 units SQ HS [facility] Polyethylene Glycol (Miralax (For Daily Use) -) 17 gm PO BID [facility] Last Admin: 11/29/19 09:31 Dose: 17 gm Documented by: - Objective Vital Signs: Vital Signs Temperature 97.4 F L 11/29/19 09:33 Pulse Rate 96 H 11/29/19 09:33 Respiratory Rate 20 11/29/19 09:33 Blood Pressure 152/92 11/29/19 09:33 O2 Sat by Pulse Oximetry (%) 95 11/29/19 09:39 Constitutional: Yes: No Distress Eyes: Yes: Conjunctiva Clear Cardiovascular: Yes: Regular Rate and Rhythm Respiratory: Yes: CTA Bilaterally Gastrointestinal: Yes: Normal Bowel Sounds, Soft Extremities: Yes: Other (+ PUSUTULAR LESIONS, PURULENT DRAINAGE, MEDIAL THIGHS BILAT) Labs: CBC, BMP 11/28/19 07:05 11/28/19 07:05 INR, PTT INR 1.13 (0.83-1.09) H 11/28/19 07:05 Assessment/Plan SOFT TISSUE INFECTION/ ABSCESSES BILAT DIABETES MELLITUS MORRBID OBESITY AWAIT C/S CONTINUE VANCOMYCIN/ ZOSYN
[2019-11-29 12:55] LABS: BASO % 0.9 % (0-2.0); EOS % 1.9 % (0-4.5); HEMATOCRIT 32.6 % (35.4-49); HEMOGLOBIN 10.7 GM/dL (11.7-16.9); LYMPH % 17.2 % (8-40); MCH 28.5 pg (25.7-33.7); MCHC 32.9 g/dl (32.0-35.9); MEAN CELL VOLUME 86.4 fl (80-96); MEAN PLT VOLUME 8.9 fl (7.5-11.1); PLATELET COUNT 315 K/MM3 (134-434); RBC 3.77 M/mm3 (4.00-5.60); RDW 14.2 % (11.9-15.9); WHITE BLOOD COUNT 9.4 K/mm3 (4.0-10.0)
[2019-11-29 13:04] LABS: ALBUMIN 1.7 g/dl (3.4-5.0); BILIRUBIN,TOTAL 0.3 mg/dL (0.2-1); CREATININE 1.1 mg/dL (0.55-1.3); MAGNESIUM 1.7 mg/dL (1.8-2.4); PHOSPHOROUS 2.4 mg/dL (2.5-4.9); POTASSIUM 3.7 mmol/L (3.5-5.1); TOT PROT 7.4 g/dl (6.4-8.2)
[2019-11-29] MEDS ORDERED: POTASSIUM CHLORIDE TABS 20 MEQ TABLET.ER (FP) PO ONE (13:30)
[2019-11-29] MEDS ORDERED: MAGNESIUM SULF 50% (8.12 MEQ/2 ML-1 GM VIAL) IVPB ONE (13:30)
[2019-11-29] MEDS ORDERED: NAPH,MB-DB/K PH,MBDB POWDER PACKET PO ONE (13:30)
--- NOTE | 2019-11-29 14:46 | CONS ---
DATE OF CONSULTATION: DATE OF DICTATION: 11/29/2019 The patient is a 44-year-old morbidly obese male, with a history of hypertension, evaluated for soft tissue infection and abscesses. He presented with a 2-week history of generalized weakness, polydipsia, polyuria, and persistent lower abdominal pain. On arrival by EMS, he was found to have blood sugar in excess of 600. He was admitted to the hospital, where he was treated for uncontrolled diabetes mellitus. He was also found to have purulent drainage from several pustular wounds present on the medial aspect of both thighs. He was given IV fluid hydration and admitted to telemetry. He denies past surgical history. He was never admitted to [facility], according to the notes. A CAT scan of the abdomen and pelvis was performed and showed no obvious abscess in the humeral areas. He was seen in consultation by Surgery, where he was found to have soft tissue infections of the medial thighs bilaterally. Cultures were obtained. No surgical intervention was advised. Past medical history positive for morbid obesity, uncontrolled blood sugar, hypertension. LABORATORY DATA: White count 12.6, hematocrit 35.3, platelets 374, BUN 12, creatinine 1.3. Urinalysis: Negative leukocyte esterase. COVID-19 antibody negative. Blood cultures preliminarily negative. Wound culture growing mixed organisms. PHYSICAL EXAMINATION: General: He is awake and alert, he is not acutely toxic appearing. Vital Signs: Temperature is 97.6. Blood pressure 136/77. Pulse 106, regular. Respirations 18 per minute. Eyes: Sclerae anicteric. Heart Sounds: S1, S2. Lungs: Clear. Abdomen: Obese. Extremities, Skin: On the thighs, there are multiple pustular lesions with purulent drainage present on the medial aspects of both thighs. There is induration present of the medial aspects of both thighs, left greater than right. No fluctuance or crepitus. IMPRESSION: 1. Soft tissue infection and soft tissue abscesses of the medial thighs bilaterally. 2. Uncontrolled diabetes mellitus. 3. Azotemia. Await cultures. Empiric antibiotic coverage with vancomycin and Zosyn. Local wound care. Thank you for the kind referral. BARBARA RAMON M.D. [id number]
--- NOTE | 2019-11-29 15:20 | PN ---
Progress Note (short form) - Note Progress Note: RENAL Awake and alert comfortable denies complaints Last Vital Signs Temp Pulse Resp BP Pulse Ox 98.5 F 96 H 20 129/66 97 11/29/19 14:00 11/29/19 14:00 11/29/19 14:00 11/29/19 14:00 11/29/19 14:00 lungs clear cvs s1s rr abd soft ext -edema has soft tissue infection in upper leg CBC, BMP 11/29/19 07:03 11/29/19 07:03 Current Medications Generic Name Dose Route Start Last Admin Trade Name Freq PRN Reason Stop Dose Admin Heparin Sodium (Porcine) 5,000 unit 11/28/19 06:00 11/29/19 14:42 Heparin - SQ 5,000 unit TID EDWIGE Administration Piperacillin Sod/Tazobactam 50 mls @ 100 mls/hr 11/29/19 10:00 11/29/19 09:51 Sod 3.375 gm/ Dextrose IVPB 100 mls/hr Q8H-IV EDWIGE Administration Protocol Vancomycin HCl 1,000 mg in 250 mls @ 166.667 mls/hr 11/29/19 10:00 11/29/19 09:53 Vancomycin (Pre-Docked) IVPB 166.667 mls/hr BID EDWIGE Administration Protocol Sodium Chloride 1,000 mls @ 175 mls/hr 11/29/19 11:30 11/29/19 11:38 1/2 Normal Saline IV 175 mls/hr ASDIR EDWIGE Administration Insulin Aspart 1 vial 11/28/19 14:00 11/29/19 14:52 Novolog Vial Sliding Scale - SQ 8 unit Q4HWA EDWIGE Administration Protocol Insulin Detemir 25 units 11/29/19 07:00 11/29/19 06:14 Levemir Vial SQ 25 units AM EDWIGE Administration Insulin Detemir 20 units 11/29/19 22:00 Levemir Vial SQ HS EDWIGE Polyethylene Glycol 17 gm 11/28/19 10:00 11/29/19 09:31 Miralax (For Daily Use) - PO 17 gm BID EDWIGE Administration IMPRESSION BECCA likely due to volume depletion PLAN would continue hydration repeat urine protein and creat will need ophtho anemia eval... likely of chronic disease MV
--- NOTE | 2019-11-29 16:16 | PN ---
Teaching Attending Note Name of Resident: Julianna Hernandez ATTENDING PHYSICIAN STATEMENT I saw and evaluated the patient. I reviewed the resident's note and discussed the case with the resident. I agree with the resident's findings and plan as documented. SUBJECTIVE: Patient is feeling better, brother is at his bedside. OBJECTIVE: Vital Signs Temperature 98.5 F 11/29/19 14:00 Pulse Rate 96 H 11/29/19 14:00 Respiratory Rate 20 11/29/19 14:00 Blood Pressure 129/66 11/29/19 14:00 O2 Sat by Pulse Oximetry (%) 97 11/29/19 14:00 PE: per resident's note CBCD WBC 9.4 K/mm3 (4.0-10.0) 11/29/19 07:03 RBC 3.77 M/mm3 (4.00-5.60) L 11/29/19 07:03 Hgb 10.7 GM/dL (11.7-16.9) L 11/29/19 07:03 Hct 32.6 % (35.4-49) L 11/29/19 07:03 MCV 86.4 fl (80-96) 11/29/19 07:03 MCHC 32.9 g/dl (32.0-35.9) 11/29/19 07:03 RDW 14.2 % (11.9-15.9) 11/29/19 07:03 Plt Count 315 K/MM3 (134-434) 11/29/19 07:03 MPV 8.9 fl (7.5-11.1) 11/29/19 07:03 CMP Sodium 137 mmol/L (136-145) 11/29/19 07:03 Potassium 3.7 mmol/L (3.5-5.1) 11/29/19 07:03 Chloride 103 mmol/L (98-107) 11/29/19 07:03 Carbon Dioxide 23 mmol/L (21-32) 11/29/19 07:03 Anion Gap 12 MMOL/L (8-16) 11/29/19 07:03 BUN 8.0 mg/dL (7-18) 11/29/19 07:03 Creatinine 1.1 mg/dL (0.55-1.3) 11/29/19 07:03 Random Glucose 283 mg/dL (74-106) H 11/29/19 07:03 Calcium 8.0 mg/dL (8.5-10.1) L 11/29/19 07:03 Total Bilirubin 0.3 mg/dL (0.2-1) 11/29/19 07:03 AST 10 U/L (15-37) L 11/29/19 07:03 ALT 9 U/L (13-61) L 11/29/19 07:03 Alkaline Phosphatase 91 U/L (45-117) 11/29/19 07:03 Total Protein 7.4 g/dl (6.4-8.2) 11/29/19 07:03 Albumin 1.7 g/dl (3.4-5.0) L 11/29/19 07:03 CARDIAC ENZYMES Troponin I < 0.02 ng/ml (0.00-0.05) 11/27/19 16:33 Current Medications Generic Name Dose Route Start Last Admin Trade Name Freq PRN Reason Stop Dose Admin Heparin Sodium (Porcine) 5,000 unit 11/28/19 06:00 11/29/19 14:42 Heparin - SQ 5,000 unit TID EDWIGE Administration Piperacillin Sod/Tazobactam 50 mls @ 100 mls/hr 11/29/19 10:00 11/29/19 09:51 Sod 3.375 gm/ Dextrose IVPB 100 mls/hr Q8H-IV EDWIGE Administration Protocol Vancomycin HCl 1,000 mg in 250 mls @ 166.667 mls/hr 11/29/19 10:00 11/29/19 09:53 Vancomycin (Pre-Docked) IVPB 166.667 mls/hr BID EDWIGE Administration Protocol Sodium Chloride 1,000 mls @ 175 mls/hr 11/29/19 11:30 11/29/19 11:38 1/2 Normal Saline IV 175 mls/hr ASDIR EDWIGE Administration Insulin Aspart 1 vial 11/28/19 14:00 11/29/19 14:52 Novolog Vial Sliding Scale - SQ 8 unit Q4HWA EDWIGE Administration Protocol Insulin Detemir 25 units 11/29/19 07:00 11/29/19 06:14 Levemir Vial SQ 25 units AM EDWIGE Administration Insulin Detemir 20 units 11/29/19 22:00 Levemir Vial SQ HS [facility] Polyethylene Glycol 17 gm 11/28/19 10:00 11/29/19 09:31 Miralax (For Daily Use) - PO 17 gm BID EDWIGE Administration Home Medications Medication Instructions Recorded NK [No Known Home Medication] 11/27/19 Microbiology 11/27/19 16:00 Groin - Left Gram Stain - Final 11/27/19 16:00 Groin - Left Wound Culture - Preliminary Lactose Fermenting Neg Bacilli Proteus Species Lactose Fermenting Neg Bacilli#2 Group D Strep Or Entero Coccus Pending Organism 11/27/19 19:55 Urine - Urine Clean Catch Urine Culture - Preliminary Lactose Fermenting Neg Bacilli Non Lactose Fermenting Gnb 11/27/19 16:00 Blood - Peripheral Venous Blood Culture - Preliminary NO GROWTH OBTAINED AFTER 24 HOURS, INCUBATION TO CONTINUE FOR 4 DAYS. 11/27/19 16:00 Blood - Peripheral Venous Blood Culture - Preliminary NO GROWTH OBTAINED AFTER 24 HOURS, INCUBATION TO CONTINUE FOR [address] abdomen and pelvis with contrast: Ther is no evidence of penumoperitoneum, no abscess or free intraperitoneal fluid or bowel obstruction. Appendix; No obvious pathology no diverticulitis diffuse fatty liver several mildly enlarged bl inguinal lymph nodes mild diffuse urinary bladder thickening which could be possible due chronic on acute cystitis CT abdomen/pelvis w/ contrast: possible right lower anterior pelvis wall abscesses, upper thigh abscesses, fatty liver and enlarged inguinal lymph nodes Assessment and plan: This patient is a 44yom with Pmhx of HTN, T2DM presented to ED. with 2 weeks of generalized weakness, polyuria, excessive thirst, and lower abdominal pain. Admitted for sepsis secondary to having draining abscess. #Sepsis Secondary to draining abscesses, on IV abx Zosyn and Vancomycin. surgery on the case and ID on the case, continue current management. # DKA on admission will continue IVF , endocrine is on the case, on full diabetic diet, and q4h bgms with coverage, added levemir as per yoga instructor. #QTc 454 avoid QTc prolonging drugs #BECCA will continue IVF #Hypertension: continue home meds DVT Px: Heparin 5000u sq will continue to monitor follow the culture and sensitivity
[2019-11-29] MEDS ORDERED: PT OWN MED DRAWER 7, Y5N ONE (16:45)
[2019-11-29] MEDS ORDERED: MAGNESIUM 1GM/D5W 100ML - 100 ML IVPB IVPB ONE (17:00)
--- NOTE | 2019-11-29 19:29 | CONSULT ---
Consult Consult Specialty:: ENDOCRINE Referred by:: COLLECTIVE BARGAINING SPECIALIST INDRA ANDERSON Reason for Consultation:: DIABETES MELLITUS UNCONTROLLED - History of Present Illness Chief Complaint: HIGH SUGAR AND INFECTION History of Present Illness: 44 y/o male PMH T2DM (currently on no meds for DM),Morbid obesity,diet non compliant, hypertension, and morbid obesity who presented with 2 weeks of weakness, polyuria, polydipsia, lower abdominal pain, nausea, vomiting, constipation, dry mouth and lack of appetite. Patient,states both mom and grandmother with dm has felt depressed and not encouraged to take control of his health,working in [employer] has been sedentary developed groin abscess that has worsened with past few weeks. - Past Medical History Cardio/Vascular: Yes: HTN Endocrine: Yes: Diabetes Mellitus - Smoking History Smoking history: Never smoked Have you smoked in the past 12 months: No Home Medications - Allergies Allergies/Adverse Reactions: Allergies Allergy/AdvReac Type Severity Reaction Status Date / Time No Known Allergies Allergy Verified 11/27/19 16:18 - Home Medications Home Medications: Ambulatory Orders NK [No Known Home Medication] 11/27/19 Review of Systems - Review of Systems Constitutional: reports: Lethargy, Malaise, Night Sweats Eyes: reports: Blurred Vision HENT: reports: No Symptoms Neck: reports: No Symptoms Cardiovascular: reports: Shortness of Breath Respiratory: reports: Exercise Intolerance, SOB, SOB on Exertion Gastrointestinal: reports: Bloating, Constipation, Nausea Genitourinary: reports: Frequency Breasts: reports: No Symptoms Reported Musculoskeletal: reports: Extremity Pain, Joint Pain, Joint Swelling, Muscle Pain, Muscle Cramps, Muscle Weakness Integumentary: reports: Erythema, Pruritis, Rash Neurological: reports: Numbness Endocrine: reports: Unexplained Weight Gain Physical Exam Vital Signs: Vital Signs Temperature 98 F 11/29/19 18:00 Pulse Rate 100 H 11/29/19 18:00 Respiratory Rate 20 11/29/19 18:00 Blood Pressure 127/52 L 11/29/19 18:00 O2 Sat by Pulse Oximetry (%) 96 11/29/19 18:00 Constitutional: Yes: Calm Eyes: Yes: EOM Intact HENT: Yes: Normocephalic Neck: Yes: Trachea Midline Extremities: Yes: Erythema Edema: LLE: 2+, RLE: 2+ Integumentary: Yes: Onychomycosis, Venous Stasis Changes Labs: CBC, BMP 11/29/19 07:03 11/29/19 07:03 Problem List - Problems (1) Type 2 diabetes mellitus with other diabetic arthropathy Problems reviewed: Yes Code(s): E11.618 - TYPE 2 DIABETES MELLITUS WITH OTHER DIABETIC ARTHROPATHY (2) BECCA (acute kidney injury) Code(s): N17.9 - ACUTE KIDNEY FAILURE, UNSPECIFIED (3) Hyperglycemia Code(s): R73.9 - HYPERGLYCEMIA, UNSPECIFIED (4) Infection Code(s): B99.9 - UNSPECIFIED INFECTIOUS DISEASE (5) Sepsis Code(s): A41.9 - SEPSIS, UNSPECIFIED ORGANISM Qualifiers: Sepsis type: sepsis due to unspecified organism Sepsis acute organ dysfunction status: unspecified Qualified Code(s): A41.9 - Sepsis, unspecified organism Assessment/Plan Current Active Problems BECCA (acute kidney injury) (Acute) Hyperglycemia (Acute) Infection (Acute) Sepsis (Acute) Abnormal Lab Results 11/29/19 11/29/19 11/29/19 07:03 07:03 07:03 RBC 3.77 L Hgb 10.7 L Hct 32.6 L Monocytes % 11.0 H Random Glucose 283 H Hemoglobin A1c % 14.0 H Calcium 8.0 L Phosphorus 2.4 L Magnesium 1.7 L AST 10 L ALT 9 L Albumin 1.7 L Laboratory Results - last 24 hr 11/29/19 11/29/19 11/29/19 07:03 07:03 07:03 WBC 9.4 RBC 3.77 L Hgb 10.7 L Hct 32.6 L MCV 86.4 MCH 28.5 MCHC 32.9 RDW 14.2 Plt Count 315 MPV 8.9 Absolute Neuts (auto) 6.5 Neutrophils % 69.0 Lymphocytes % 17.2 Monocytes % 11.0 H Eosinophils % 1.9 D Basophils % 0.9 Nucleated RBC % 0 Sodium Potassium Chloride Carbon Dioxide Anion Gap BUN Creatinine Est GFR (CKD-EPI)AfAm Est GFR (CKD-EPI)NonAf Random Glucose Hemoglobin A1c % 14.0 H Calcium Phosphorus Magnesium Total Bilirubin AST ALT Alkaline Phosphatase Total Protein Albumin Blood Type AB POSITIVE Antibody Screen Negative 11/29/19 07:03 WBC RBC Hgb Hct MCV MCH MCHC RDW Plt Count MPV Absolute Neuts (auto) Neutrophils % Lymphocytes % Monocytes % Eosinophils % Basophils % Nucleated RBC % Sodium 137 Potassium 3.7 Chloride 103 Carbon Dioxide 23 Anion Gap 12 BUN 8.0 Creatinine 1.1 Est GFR (CKD-EPI)AfAm 92.81 Est GFR (CKD-EPI)NonAf 80.08 Random Glucose 283 H Hemoglobin A1c % Calcium 8.0 L Phosphorus 2.4 L Magnesium 1.7 L Total Bilirubin 0.3 AST 10 L ALT 9 L Alkaline Phosphatase 91 Total Protein 7.4 Albumin 1.7 L Blood Type Antibody Screen plan: bgm qid novolog scale novolg dose adgjustment levemir 40units am levemir 30units hs follow up wound care
[2019-11-29] MEDS: INSULIN (LEVEMIR) 100 UNITS/ML UNITS SQ SCH (22:00)
[2019-11-30] MEDS ORDERED: DEXTROSE 5%-WATER - 50 ML IVPB ONE ×3 (01:31→17:06)
[2019-11-30] MEDS ORDERED: PIPERACILLIN/TAZOBACTAM 3.375 GM VIAL IVPB ONE ×3 (01:31→17:06)
[2019-11-30] MEDS ORDERED: morphine SULFATE 4 MG/ML VIAL IVPUSH PRN (01:43)
[2019-11-30] MEDS: PIPERACILLIN/TAZOB 3.375 GM 3.375 GM in DEXTROSE 5%-WATER - 50 ML IVPB SCH ×3 (01:47→18:12)
[2019-11-30] MEDS ORDERED: ACETAMINOPHEN 325 MG TABLET (FP) PO PRN (02:03)
[2019-11-30] MEDS: HEPARIN NA (PORCINE) 5,000 UNITS/ML 1ML VIAL SQ SCH ×3 (06:08→21:23)
[2019-11-30] MEDS: INSULIN (LEVEMIR) 100 UNITS/ML UNITS SQ SCH ×2 (06:10→21:24)
[2019-11-30] MEDS: INSULIN SLIDING SCALE (NOVOLOG) 1 VIAL SQ SCH ×5 (06:11→21:26)
[2019-11-30 07:25] LABS: BASO % 0.5 % (0-2.0); EOS % 2.2 % (0-4.5); HEMATOCRIT 31.7 % (35.4-49); HEMOGLOBIN 10.7 GM/dL (11.7-16.9); LYMPH % 19.1 % (8-40); MCH 28.4 pg (25.7-33.7); MCHC 33.7 g/dl (32.0-35.9); MEAN CELL VOLUME 84.5 fl (80-96); MEAN PLT VOLUME 7.8 fl (7.5-11.1); MONO % 7.7 % (3.8-10.2); NEUT % 70.5 % (42.8-82.8); PLATELET COUNT 292 K/MM3 (134-434); RBC 3.75 M/mm3 (4.00-5.60); RDW 13.6 % (11.9-15.9); WHITE BLOOD COUNT 9.1 K/mm3 (4.0-10.0)
[2019-11-30 07:48] LABS: ALBUMIN 1.6 g/dl (3.4-5.0); BILIRUBIN,TOTAL 0.3 mg/dL (0.2-1); BLOOD UREA NITROGEN 3.8 mg/dL (7-18); CALCIUM 7.6 mg/dL (8.5-10.1); CREATININE 0.7 mg/dL (0.55-1.3); MAGNESIUM 1.7 mg/dL (1.8-2.4); PHOSPHOROUS 2.2 mg/dL (2.5-4.9); POTASSIUM 3.6 mmol/L (3.5-5.1); TOT PROT 6.8 g/dl (6.4-8.2)
[2019-11-30] MEDS ORDERED: PT OWN MED DRAWER 7, Y5N ONE (09:04)
[2019-11-30] MEDS: POLYETHYLENE GLYCOL 3350 119 GM BTL PO SCH ×2 (09:14→21:27)
[2019-11-30] MEDS: VANCOMYCIN 1 GRAM (PRE-DOCKED) 1,000 MG/250 ML BAG IVPB SCH (10:30)
--- NOTE | 2019-11-30 12:59 | PN ---
Progress Note, Physician History of Present Illness: Pt seen and examined at bedside. He is awake and alert. He denies dysuria or hematuria. - Current Medication List Current Medications: Active Medications Heparin Sodium (Porcine) (Heparin -) 5,000 unit SQ TID [facility] Last Admin: 11/30/19 06:08 Dose: 5,000 unit Documented by: Piperacillin Sod/Tazobactam (Sod 3.375 gm/ Dextrose) 50 mls @ 100 mls/hr IVPB Q8H-IV EDWIGE; Protocol Last Admin: 11/30/19 09:15 Dose: 100 mls/hr Documented by: Vancomycin HCl (Vancomycin (Pre-Docked)) 1,000 mg in 250 mls @ 166.667 mls/hr IVPB BID [facility]; Protocol Last Admin: 11/30/19 10:30 Dose: 166.667 mls/hr Documented by: Sodium Chloride (1/2 Normal Saline) 1,000 mls @ 175 mls/hr IV ASDIR [facility] Last Admin: 11/29/19 22:01 Dose: 175 mls/hr Documented by: Insulin Aspart (Novolog Vial Sliding Scale -) 1 vial SQ Q4HWA [facility]; Protocol Last Admin: 11/30/19 10:30 Dose: 10 units Documented by: Insulin Detemir (Levemir Vial) 40 units SQ AM [facility] Last Admin: 11/30/19 06:10 Dose: 40 units Documented by: Insulin Detemir (Levemir Vial) 30 units SQ HS [facility] Last Admin: 11/29/19 22:00 Dose: 30 units Documented by: Polyethylene Glycol (Miralax (For Daily Use) -) 17 gm PO BID [facility] Last Admin: 11/30/19 09:14 Dose: 17 gm Documented by: - Objective Vital Signs: Vital Signs Temperature 98.3 F 11/30/19 09:10 Pulse Rate 93 H 11/30/19 09:10 Respiratory Rate 19 11/30/19 09:10 Blood Pressure 117/53 L 11/30/19 09:10 O2 Sat by Pulse Oximetry (%) 96 11/30/19 09:10 Constitutional: Yes: Calm Eyes: Yes: Conjunctiva Clear HENT: Yes: Atraumatic Neck: Yes: Supple Cardiovascular: Yes: S1, S2 Respiratory: Yes: CTA Bilaterally Gastrointestinal: Yes: Normal Bowel Sounds, Soft Genitourinary: Yes: WNL Musculoskeletal: Yes: WNL Edema: No Neurological: Yes: Oriented Psychiatric: Yes: Oriented Labs: CBC, BMP 11/30/19 06:06 11/30/19 06:06 INR, PTT INR 1.13 (0.83-1.09) H 11/28/19 07:05 Assessment/Plan Current Medications Generic Name Dose Route Start Last Admin Trade Name Freq PRN Reason Stop Dose Admin Heparin Sodium (Porcine) 5,000 unit 11/28/19 06:00 11/30/19 06:08 Heparin - SQ 5,000 unit TID EDWIGE Administration Piperacillin Sod/Tazobactam 50 mls @ 100 mls/hr 11/29/19 10:00 11/30/19 09:15 Sod 3.375 gm/ Dextrose IVPB 100 mls/hr Q8H-IV EDWIGE Administration Protocol Vancomycin HCl 1,000 mg in 250 mls @ 166.667 mls/hr 11/29/19 10:00 11/30/19 10:30 Vancomycin (Pre-Docked) IVPB 166.667 mls/hr BID EDWIGE Administration Protocol Sodium Chloride 1,000 mls @ 175 mls/hr 11/29/19 11:30 11/29/19 22:01 1/2 Normal Saline IV 175 mls/hr ASDIR EDWIGE Administration Insulin Aspart 1 vial 11/29/19 22:00 11/30/19 10:30 Novolog Vial Sliding Scale - SQ 10 units Q4HWA EDWIGE Administration Protocol Insulin Detemir 40 units 11/30/19 07:00 11/30/19 06:10 Levemir Vial SQ 40 units AM EDWIGE Administration Insulin Detemir 30 units 11/29/19 22:00 11/29/19 22:00 Levemir Vial SQ 30 units HS EDWIGE Administration Polyethylene Glycol 17 gm 11/28/19 10:00 11/30/19 09:14 Miralax (For Daily Use) - PO 17 gm BID EDWIGE Administration Impression 1. BECCA 2. DM 3. proteinuria 4. htn 5. abscess Plan - renal function is improved - repeat ua and prt to hogshead inspector ratio - follow imfx - dm can explain proteinuria - discussed improtance of glucose control - can start to decrease fluids - replace mag
[2019-11-30] MEDS ORDERED: MAGNESIUM 1GM/D5W 100ML - 100 ML IVPB IVPB ONE (13:15)
--- NOTE | 2019-11-30 13:18 | PN ---
Physical Exam: SUBJECTIVE: Patient seen and examined at bedside. No acute events reported overnight. This morning patient is reporting pain from a left axillary abscess. OBJECTIVE: Vital Signs Period Temp Pulse Resp BP Sys/Chambers Pulse Ox Last 24 Hr 98 F-98.6 F 86-103 18-20 117-156/52-77 96-98 GENERAL: AAOx3, patient appears uncomfortable;morbidly obese habitus HEENT: NCAT, PERRLA, EOMI, sclera anicteric, conjunctiva clear, oropharynx clear w/o exudates. MMM. NECK: Normal ROM, supple, no lymphadenopathy, JVD, or masses LUNGS: CTABL no wheezes/ rhonchi/ rales. HEART: RRR, normal S1 S2, no M/R/G, peripheral pulses 2+ and equal b/l ABDOMEN: Soft, no tenderness, + BS. No guarding or rebound. No hepatomegaly or splenomegaly. MSK: ROM WNL EXTREMITIES: Normal inspection. No peripheral edema. No clubbing or cyanosis. NEUROLOGICAL: CN II-XII intact. Normal speech, normal gait, no focal sensorimotor deficits. SKIN: Warm, Dry, decreased skin turgor, left axillary abscess. warm and tender to palpation Laboratory Results - last 24 hr CBC, BMP 11/30/19 06:06 11/30/19 06:06 11/27/19 11/29/19 11/30/19 16:33 21:57 06:06 WBC 9.1 RBC 3.75 L Hgb 10.7 L Hct 31.7 L MCV 84.5 MCH 28.4 MCHC 33.7 RDW 13.6 Plt Count 292 MPV 7.8 D Absolute Neuts (auto) 6.4 Neutrophils % 70.5 Lymphocytes % 19.1 Monocytes % 7.7 Eosinophils % 2.2 Basophils % 0.5 Nucleated RBC % 0 VBG pH 7.317 POC VBG pCO2 33.1 L POC VBG pO2 30.0 VBG HCO3 16.6 L VBG O2 Sat (Emmanuel) 52.8 L VBG Base Excess -8.7 L Sodium Potassium Chloride Carbon Dioxide Anion Gap BUN Creatinine Est GFR (CKD-EPI)AfAm Est GFR (CKD-EPI)NonAf POC Glucometer 247 Random Glucose Calcium Phosphorus Magnesium Total Bilirubin AST ALT Alkaline Phosphatase Total Protein Albumin 11/30/19 11/30/19 06:06 10:04 WBC RBC Hgb Hct MCV MCH MCHC RDW Plt Count MPV Absolute Neuts (auto) Neutrophils % Lymphocytes % Monocytes % Eosinophils % Basophils % Nucleated RBC % VBG pH POC VBG pCO2 POC VBG pO2 VBG HCO3 VBG O2 Sat (Emmanuel) VBG Base Excess Sodium 135 L Potassium 3.6 Chloride 101 Carbon Dioxide 26 Anion Gap 8 BUN 3.8 L Creatinine 0.7 Est GFR (CKD-EPI)AfAm 131.17 Est GFR (CKD-EPI)NonAf 113.17 POC Glucometer 272 Random Glucose 230 H Calcium 7.6 L Phosphorus 2.2 L Magnesium 1.7 L Total Bilirubin 0.3 AST 10 L ALT 9 L Alkaline Phosphatase 84 Total Protein 6.8 Albumin 1.6 L Active Medications Generic Name Dose Route Start Last Admin Trade Name Freq PRN Reason Stop Dose Admin Heparin Sodium (Porcine) 5,000 unit 11/28/19 06:00 11/30/19 06:08 Heparin - SQ 5,000 unit TID EDWIGE Administration Piperacillin Sod/Tazobactam 50 mls @ 100 mls/hr 11/29/19 10:00 11/30/19 09:15 Sod 3.375 gm/ Dextrose IVPB 100 mls/hr Q8H-IV EDWIGE Administration Protocol Vancomycin HCl 1,000 mg in 250 mls @ 166.667 mls/hr 11/29/19 10:00 11/30/19 10:30 Vancomycin (Pre-Docked) IVPB 166.667 mls/hr BID EDWIGE Administration Protocol Sodium Chloride 1,000 mls @ 175 mls/hr 11/29/19 11:30 11/29/19 22:01 1/2 Normal Saline IV 175 mls/hr ASDIR EDWIGE Administration Insulin Aspart 1 vial 11/29/19 22:00 11/30/19 10:30 Novolog Vial Sliding Scale - SQ 10 units Q4HWA EDWIGE Administration Protocol Insulin Detemir 40 units 11/30/19 07:00 11/30/19 06:10 Levemir Vial SQ 40 units AM EDWIGE Administration Insulin Detemir 30 units 11/29/19 22:00 11/29/19 22:00 Levemir Vial SQ 30 units HS EDWIGE Administration Polyethylene Glycol 17 gm 11/28/19 10:00 11/30/19 09:14 Miralax (For Daily Use) - PO 17 gm BID EDWIGE Administration ASSESSMENT/PLAN: 44 y/o male with PMX of HTN, DM2 presenting with 2 weeks of generalized weakness, polyuria, excessive thirst, and lower abdominal pain. Admitted for sep sis secondary to pelvic abscess. #Sepsis Secondary to Pelvic Abscess -CT abdomen/pelvis w/ contrast: possible right lower anterior pelvis wall abscesses, upper thigh abscesses, fatty liver and enlarged inguinal lymph nodes -IV abx: Zosyn and Vancomycin -surgery consulted: no plan for operative intervention at this time -ID consulted: wait for abscess culture report -IVF with 2 NS -QTc 454 upon admission -avoid QTC prolonging drugs #Axillary Abscess -Dr. Sorto from General Surgery notified and aware of new abscess -f/u with Dr. Dickson about plan for drainage of axillary abscess #BECCA -resolving -Cr 1.6-->1.1-->0.7 -continue IVF on 04/02 NS -nephro consulted: recommend another UA and urine protein:Cr -renal ultrasound 11/27- negative study -SPEP ordered- pending results -serum protein electrophoresis- pending results -pt will benefit from ACEI/ARB when discharged -Avoid nephrotoxic agents #Diabetes Mellitus -mild DKA upon admission which improved in the ER with IV insulin -curently on 04/02 NSS -continue ISS BGM -HgA1c on 11/28: 14 -endocrine consulted: Dr. Bradshaw recommends Levemir 40 units AM and 30 units hs #constipation -miralax BID #Hypertension -monitor blood pressure readings -consider lisinopril if hypertensive #FEN -fluids- 1/2NS IVF -electrolytes- monitor electrolytes -nutrition- liquid diabetic diet #Prophylaxis -DVT: Heparin 5000u sq tid disposition: monitor in telemetry Visit type - Emergency Visit Emergency Visit: No - New Patient This patient is new to me today: No - Critical Care Critical Care patient: No ATTENDING PHYSICIAN STATEMENT I saw and evaluated the patient. I reviewed the resident's note and discussed the case with the resident. I agree with the resident's findings and plan as documented. SUBJECTIVE: OBJECTIVE: ASSESSMENT AND PLAN:
[2019-11-30] MEDS: SODIUM CHLORIDE 0.45% 1,000 ML IV SCH ×2 (13:49→21:38)
[2019-11-30 14:56] LABS: EPI CELLS 5 /uL (0-25.1); HYALINE CASTS 1 /uL (0-3.1); PH,URINE 6.5 (5.0-8.0); URINE APPEARANCE CLEAR; URINE BACTERIA 9 /uL (0-1359); URINE BILIRUBIN NEGATIVE (NEGATIVE); URINE COLOR YELLOW; URINE GLUCOSE (UA) 3+ (NEGATIVE); URINE KETONE NEGATIVE (NEGATIVE); URINE LEUK ESTERASE NEGATIVE (NEGATIVE); URINE NITRITE NEGATIVE (NEGATIVE); URINE PROTEIN NEGATIVE (NEGATIVE); URINE RBC 6 /uL (0-23.9); URINE UROBILINOGEN 0.2 mg/dL (0.2-1.0); URINE WBC 10 /uL (0-25.8)
--- NOTE | 2019-11-30 15:50 | PN ---
Teaching Attending Note Name of Resident: Josue Dias ATTENDING PHYSICIAN STATEMENT I saw and evaluated the patient. I reviewed the resident's note and discussed the case with the resident. I agree with the resident's findings and plan as documented. SUBJECTIVE: Patient is feeling better, NAD , c/o another abscess formation on his right axil yonathan area, and midsternal area OBJECTIVE: Vital Signs Temperature 97.5 F L 11/30/19 13:00 Pulse Rate 98 H 11/30/19 13:00 Respiratory Rate 20 11/30/19 13:00 Blood Pressure 125/74 11/30/19 13:00 O2 Sat by Pulse Oximetry (%) 96 11/30/19 09:10 PE: per resident's notes tenderness on midsternal area possible due to an abscess formation right axilla: Hydradenitis Suppurative multiple abscess small draining from his thighs CBCD WBC 9.1 K/mm3 (4.0-10.0) 11/30/19 06:06 RBC 3.75 M/mm3 (4.00-5.60) L 11/30/19 06:06 Hgb 10.7 GM/dL (11.7-16.9) L 11/30/19 06:06 Hct 31.7 % (35.4-49) L 11/30/19 06:06 MCV 84.5 fl (80-96) 11/30/19 06:06 MCHC 33.7 g/dl (32.0-35.9) 11/30/19 06:06 RDW 13.6 % (11.9-15.9) 11/30/19 06:06 Plt Count 292 K/MM3 (134-434) 11/30/19 06:06 MPV 7.8 fl (7.5-11.1) D 11/30/19 06:06 CMP Sodium 135 mmol/L (136-145) L 11/30/19 06:06 Potassium 3.6 mmol/L (3.5-5.1) 11/30/19 06:06 Chloride 101 mmol/L (98-107) 11/30/19 06:06 Carbon Dioxide 26 mmol/L (21-32) 11/30/19 06:06 Anion Gap 8 MMOL/L (8-16) 11/30/19 06:06 BUN 3.8 mg/dL (7-18) L 11/30/19 06:06 Creatinine 0.7 mg/dL (0.55-1.3) 11/30/19 06:06 Random Glucose 230 mg/dL (74-106) H 11/30/19 06:06 Calcium 7.6 mg/dL (8.5-10.1) L 11/30/19 06:06 Total Bilirubin 0.3 mg/dL (0.2-1) 11/30/19 06:06 AST 10 U/L (15-37) L 11/30/19 06:06 ALT 9 U/L (13-61) L 11/30/19 06:06 Alkaline Phosphatase 84 U/L (45-117) 11/30/19 06:06 Total Protein 6.8 g/dl (6.4-8.2) 11/30/19 06:06 Albumin 1.6 g/dl (3.4-5.0) L 11/30/19 06:06 CARDIAC ENZYMES Troponin I < 0.02 ng/ml (0.00-0.05) 11/27/19 16:33 Current Medications Generic Name Dose Route Start Last Admin Trade Name Freq PRN Reason Stop Dose Admin Heparin Sodium (Porcine) 5,000 unit 11/28/19 06:00 11/30/19 14:00 Heparin - SQ 5,000 unit TID EDWIGE Administration Piperacillin Sod/Tazobactam 50 mls @ 100 mls/hr 11/29/19 10:00 11/30/19 09:15 Sod 3.375 gm/ Dextrose IVPB 100 mls/hr Q8H-IV EDWIGE Administration Protocol Sodium Chloride 1,000 mls @ 175 mls/hr 11/29/19 11:30 11/30/19 13:49 1/2 Normal Saline IV 175 mls/hr ASDIR EDWIGE Administration Insulin Aspart 1 vial 11/29/19 22:00 11/30/19 14:03 Novolog Vial Sliding Scale - SQ 12 units Q4HWA [facility] Administration Protocol Insulin Detemir 40 units 11/30/19 07:00 11/30/19 06:10 Levemir Vial SQ 40 units AM EDWIGE Administration Insulin Detemir 30 units 11/29/19 22:00 11/29/19 22:00 Levemir Vial SQ 30 units HS EDWIGE Administration Polyethylene Glycol 17 gm 11/28/19 10:00 11/30/19 09:14 Miralax (For Daily Use) - PO 17 gm BID EDWIGE Administration Home Medications Medication Instructions Recorded NK [No Known Home Medication] 11/27/19 Microbiology 11/27/19 16:00 Groin - Left Gram Stain - Final 11/27/19 16:00 Groin - Left Wound Culture - Final Lactose Fermenting Neg Bacilli Proteus Species Lactose Fermenting Neg Bacilli#2 Group D Strep Or Entero Coccus Strep Agalactiae Group B 11/27/19 19:55 Urine - Urine Clean Catch Urine Culture - Final Klebsiella Pneumoniae Non Lactose Fermenting Gnb 11/27/19 16:00 Blood - Peripheral Venous Blood Culture - Preliminary NO GROWTH OBTAINED AFTER 48 HOURS, INCUBATION TO CONTINUE FOR 3 DAYS. 11/27/19 16:00 Blood - Peripheral Venous Blood Culture - Preliminary NO GROWTH OBTAINED AFTER 48 HOURS, INCUBATION TO CONTINUE FOR [address] abdomen and pelvis with contrast: Ther is no evidence of penumoperitoneum, no abscess or free intraperitoneal fluid or bowel obstruction. Appendix; No obvious pathology no diverticulitis diffuse fatty liver several mildly enlarged bl inguinal lymph nodes mild diffuse urinary bladder thickening which could be possible due chronic on acute cystitis CT abdomen/pelvis w/ contrast: possible right lower anterior pelvis wall abscesses, upper thigh abscesses, fatty liver and enlarged inguinal lymph nodes Assessment and plan: This patient is a 44yom with Pmhx of HTN, T2DM presented to ED. with 2 weeks of generalized weakness, polyuria, excessive thirst, and lower abdominal pain. Admitted for sepsis secondary to having draining abscess. #Sepsis Secondary to multiple draining abscesses, on IV abx Zosyn and Vancomycin. surgery on the case and ID on the case, continue current management. #Hydradenitis Suppurative: on the right axilla, on IV antibiotics, surgery is on the case, dr Sorto is made aware of it, will see the patient. #Acute UTI growing Klebsiella Pneumoniae sensitive to everything # DKA on admission will continue IVF , endocrine is on the case, on full diabetic diet, and q4h bgms with coverage, added levemir as per data integration analyst. #QTc 454 avoid QTc prolonging drugs #BECAC will continue IVF #Hypertension: continue home meds DVT Px: Heparin 5000u sq will continue to monitor follow wound culture and sensitivity
[2019-12-01] MEDS ORDERED: DEXTROSE 5%-WATER - 50 ML IVPB ONE ×3 (01:09→18:02)
[2019-12-01] MEDS ORDERED: PIPERACILLIN/TAZOBACTAM 3.375 GM VIAL IVPB ONE ×3 (01:09→18:01)
[2019-12-01] MEDS: PIPERACILLIN/TAZOB 3.375 GM 3.375 GM in DEXTROSE 5%-WATER - 50 ML IVPB SCH ×3 (01:15→18:03)
[2019-12-01] MEDS: SODIUM CHLORIDE 0.45% 1,000 ML IV SCH ×4 (03:05→18:06)
[2019-12-01] MEDS: HEPARIN NA (PORCINE) 5,000 UNITS/ML 1ML VIAL SQ SCH ×3 (06:26→23:30)
[2019-12-01] MEDS: INSULIN SLIDING SCALE (NOVOLOG) 1 VIAL SQ SCH ×5 (06:27→23:31)
[2019-12-01] MEDS: INSULIN (LEVEMIR) 100 UNITS/ML UNITS SQ SCH ×2 (06:27→23:31)
[2019-12-01 07:23] LABS: BASO % 0.6 % (0-2.0); EOS % 2.2 % (0-4.5); HEMATOCRIT 32.4 % (35.4-49); HEMOGLOBIN 10.8 GM/dL (11.7-16.9); LYMPH % 16.2 % (8-40); MCH 28.3 pg (25.7-33.7); MCHC 33.2 g/dl (32.0-35.9); MEAN CELL VOLUME 85.1 fl (80-96); MEAN PLT VOLUME 8.2 fl (7.5-11.1); MONO % 8.1 % (3.8-10.2); NEUT % 72.9 % (42.8-82.8); PLATELET COUNT 302 K/MM3 (134-434); RBC 3.81 M/mm3 (4.00-5.60)
[2019-12-01 07:45] LABS: CALCIUM 7.6 mg/dL (8.5-10.1); CREATININE 0.6 mg/dL (0.55-1.3); MAGNESIUM 1.8 mg/dL (1.8-2.4); PHOSPHOROUS 2.8 mg/dL (2.5-4.9); POTASSIUM 3.7 mmol/L (3.5-5.1)
[2019-12-01] MEDS: POLYETHYLENE GLYCOL 3350 119 GM BTL PO SCH ×2 (11:19→23:29)
--- NOTE | 2019-12-01 13:38 | PN ---
Progress Note, Physician History of Present Illness: Pt seen and examined at bedside. he is awake and alert. He denies shortness of breath. - Current Medication List Current Medications: Active Medications Heparin Sodium (Porcine) (Heparin -) 5,000 unit SQ TID [facility] Last Admin: 12/01/19 06:26 Dose: 5,000 unit Documented by: Piperacillin Sod/Tazobactam (Sod 3.375 gm/ Dextrose) 50 mls @ 100 mls/hr IVPB Q8H-IV EDWIGE; Protocol Last Admin: 12/01/19 11:19 Dose: 100 mls/hr Documented by: Sodium Chloride (1/2 Normal Saline) 1,000 mls @ 175 mls/hr IV ASDIR EDWIGE Last Admin: 12/01/19 09:38 Dose: 175 mls/hr Documented by: Insulin Aspart (Novolog Vial Sliding Scale -) 1 vial SQ Q4HWA [facility]; Protocol Last Admin: 12/01/19 10:16 Dose: 10 units Documented by: Insulin Detemir (Levemir Vial) 40 units SQ AM [facility] Last Admin: 12/01/19 06:27 Dose: Not Given Documented by: Insulin Detemir (Levemir Vial) 30 units SQ HS [facility] Last Admin: 11/30/19 21:24 Dose: 30 units Documented by: Polyethylene Glycol (Miralax (For Daily Use) -) 17 gm PO BID [facility] Last Admin: 12/01/19 11:19 Dose: 17 gm Documented by: - Objective Vital Signs: Vital Signs Temperature 98.1 F 12/01/19 08:50 Pulse Rate 94 H 12/01/19 08:50 Respiratory Rate 20 12/01/19 08:50 Blood Pressure 135/75 12/01/19 08:50 O2 Sat by Pulse Oximetry (%) 98 12/01/19 08:50 Constitutional: Yes: Calm Eyes: Yes: Conjunctiva Clear HENT: Yes: Atraumatic Cardiovascular: Yes: S1, S2 Respiratory: Yes: CTA Bilaterally Gastrointestinal: Yes: Soft, Abdomen, Obese Genitourinary: Yes: WNL Musculoskeletal: Yes: WNL Edema: No Neurological: Yes: Oriented Psychiatric: Yes: Oriented Labs: CBC, BMP 12/01/19 06:20 12/01/19 06:20 INR, PTT INR 1.13 (0.83-1.09) H 11/28/19 07:05 Assessment/Plan Current Medications Generic Name Dose Route Start Last Admin Trade Name Jaye PRN Reason Stop Dose Admin Heparin Sodium (Porcine) 5,000 unit 11/28/19 06:00 12/01/19 06:26 Heparin - SQ 5,000 unit TID EDWIGE Administration Piperacillin Sod/Tazobactam 50 mls @ 100 mls/hr 11/29/19 10:00 12/01/19 11:19 Sod 3.375 gm/ Dextrose IVPB 100 mls/hr Q8H-IV EDWIGE Administration Protocol Sodium Chloride 1,000 mls @ 175 mls/hr 11/29/19 11:30 12/01/19 09:38 1/2 Normal Saline IV 175 mls/hr ASDIR EDWIGE Administration Insulin Aspart 1 vial 11/29/19 22:00 12/01/19 10:16 Novolog Vial Sliding Scale - SQ 10 units Q4HWA EDWIGE Administration Protocol Insulin Detemir 40 units 11/30/19 07:00 12/01/19 06:27 Levemir Vial SQ Not Given AM EDWIGE Insulin Detemir 30 units 11/29/19 22:00 11/30/19 21:24 Levemir Vial SQ 30 units HS EDWIGE Administration Polyethylene Glycol 17 gm 11/28/19 10:00 12/01/19 11:19 Miralax (For Daily Use) - PO 17 gm BID EDWIGE Administration Impression 1. BECCA 2. DM 3. proteinuria 4. htn 5. abscess Plan - renal function stable - ua shows neg protein - follow imfx - discussed importance of glucose control - lytes stable - decrease fluids
--- NOTE | 2019-12-01 14:57 | PN ---
Physical Exam: SUBJECTIVE: Patient seen and examined at bedside. Patient had no acute events overnight. This morning patient is continuing to complain of left armpit pain due to the abscess. Patient states that he would like to start a solid food diabetic diet. OBJECTIVE: Vital Signs Period Temp Pulse Resp BP Sys/Chambers Pulse Ox Last 24 Hr 97.7 F-98.9 F 92-102 18-20 111-135/55-75 96-99 GENERAL: AAOx3, patient appears comfortable;morbidly obese habitus HEENT: NCAT, PERRLA, EOMI, sclera anicteric, conjunctiva clear, oropharynx clear w/o exudates. MMM. NECK: Normal ROM, supple, no lymphadenopathy, JVD, or masses LUNGS: CTABL no wheezes/ rhonchi/ rales. HEART: RRR, normal S1 S2, no M/R/G, peripheral pulses 2+ and equal b/l ABDOMEN: Soft, no tenderness, + BS. No guarding or rebound. No hepatomegaly or splenomegaly. MSK: ROM WNL EXTREMITIES: Normal inspection. No peripheral edema. No clubbing or cyanosis. NEUROLOGICAL: CN II-XII intact. Normal speech, normal gait, no focal sensorimotor deficits. SKIN: Warm, Dry, decreased skin turgor, left axillary abscess. warm and tender to palpation Laboratory Results - last 24 hr CBC, BMP 12/01/19 06:20 12/01/19 06:20 11/29/19 11/30/19 12/01/19 07:03 14:10 06:20 WBC 10.0 RBC 3.81 L Hgb 10.8 L Hct 32.4 L MCV 85.1 MCH 28.3 MCHC 33.2 RDW 14.0 Plt Count 302 MPV 8.2 Absolute Neuts (auto) 7.3 Neutrophils % 72.9 Lymphocytes % 16.2 Monocytes % 8.1 Eosinophils % 2.2 Basophils % 0.6 Nucleated RBC % 0 Sodium Potassium Chloride Carbon Dioxide Anion Gap BUN Creatinine Est GFR (CKD-EPI)AfAm Est GFR (CKD-EPI)NonAf POC Glucometer Random Glucose Calcium Phosphorus Magnesium Total Protein (PEP) 6.9 Albumin (PEP) 2.0 L Globulin 4.9 H Albumin/Globulin Ratio 0.4 L Beta Globulins 1.3 Urine Color Yellow Urine Appearance Clear Urine pH 6.5 D Ur Specific [place] 1.012 Urine Protein Negative Urine Glucose (UA) 3+ H Urine Ketones Negative Urine Blood Trace Urine Nitrite Negative Urine Bilirubin Negative Urine Urobilinogen 0.2 Ur Leukocyte Esterase Negative Urine WBC (Auto) 10 Urine RBC (Auto) 6 Urine Casts (Auto) 1 U Epithel Cells (Auto) 5 Urine Bacteria (Auto) 9 MONTSE M-Darci Not observed 12/01/19 12/01/19 06:20 10:15 WBC RBC Hgb Hct MCV MCH MCHC RDW Plt Count MPV Absolute Neuts (auto) Neutrophils % Lymphocytes % Monocytes % Eosinophils % Basophils % Nucleated RBC % Sodium 138 Potassium 3.7 Chloride 105 Carbon Dioxide 26 Anion Gap 7 L BUN 2.0 L* Creatinine 0.6 Est GFR (CKD-EPI)AfAm 139.75 Est GFR (CKD-EPI)NonAf 120.58 POC Glucometer 254 Random Glucose 101 Calcium 7.6 L Phosphorus 2.8 Magnesium 1.8 Total Protein (PEP) Albumin (PEP) Globulin Albumin/Globulin Ratio Beta Globulins Urine Color Urine Appearance Urine pH Ur Specific [place] Urine Protein Urine Glucose (UA) Urine Ketones Urine Blood Urine Nitrite Urine Bilirubin Urine Urobilinogen Ur Leukocyte Esterase Urine WBC (Auto) Urine RBC (Auto) Urine Casts (Auto) U Epithel Cells (Auto) Urine Bacteria (Auto) MONTSE M-Darci Active Medications Generic Name Dose Route Start Last Admin Trade Name Freq PRN Reason Stop Dose Admin Heparin Sodium (Porcine) 5,000 unit 11/28/19 06:00 12/01/19 14:30 Heparin - SQ 5,000 unit TID EDWIGE Administration Piperacillin Sod/Tazobactam 50 mls @ 100 mls/hr 11/29/19 10:00 12/01/19 11:19 Sod 3.375 gm/ Dextrose IVPB 100 mls/hr Q8H-IV EDWIGE Administration Protocol Sodium Chloride 1,000 mls @ 75 mls/hr 12/01/19 13:39 1/2 Normal Saline IV ASDIR [facility] Insulin Aspart 1 vial 11/29/19 22:00 12/01/19 10:16 Novolog Vial Sliding Scale - SQ 10 units Q4HWA [facility] Administration Protocol Insulin Detemir 40 units 11/30/19 07:00 12/01/19 06:27 Levemir Vial SQ Not Given AM [facility] Insulin Detemir 30 units 11/29/19 22:00 11/30/19 21:24 Levemir Vial SQ 30 units HS EDWIGE Administration Polyethylene Glycol 17 gm 11/28/19 10:00 12/01/19 11:19 Miralax (For Daily Use) - PO 17 gm BID EDWIGE Administration ASSESSMENT/PLAN: 44 y/o male with PMX of HTN, DM2 presenting with 2 weeks of generalized weakness, polyuria, excessive thirst, and lower abdominal pain. Admitted for sepsis secondary to pelvic abscess. #Sepsis Secondary to Pelvic Abscess -CT abdomen/pelvis w/ contrast: possible right lower anterior pelvis wall abscesses, upper thigh abscesses, fatty liver and enlarged inguinal lymph nodes -IV abx: Zosyn and Vancomycin -surgery consulted: no plan for operative intervention at this time -abscess culture grew Lactose germenting negative bacilli, proteus, Group D strep, strep algalactiae -IVF with 1/2 NS -QTc 454 upon admission -avoid QTC prolonging drugs #Axillary Abscess -Dr. Sorto consulted- does not feel it is worth draining due to suspicion of Hidradenitis Suppurativa as abscess will likely come back -hot pack ordered PRN for the patient to apply on the abscess -u/s ordered to evaluate the size of the abscess #BECCA -resolving -Cr 1.6-->1.1-->0.7-->0.6 -continue IVF on 04/02 NS -nephro- lowered the fluid rate today -renal ultrasound 11/27- negative study -SPEP ordered- pending results -serum protein electrophoresis- pending results -pt will benefit from ACEI/ARB when discharged -Avoid nephrotoxic agents #Diabetes Mellitus -mild DKA upon admission which improved in the ER with IV insulin -curently on 04/02 NSS -continue ISS BGM -HgA1c on 11/28: 14 -endocrine consulted: Dr. Bradshaw recommends Levemir 40 units AM and 30 units hs -diet changed from liquid diabetic diet to solid diabetic diet today #constipation -miralax BID #Hypertension -monitor blood pressure readings -consider lisinopril if hypertensive #FEN -fluids- 1/2NS IVF 75 mls -electrolytes- monitor electrolytes -nutrition- diabetic diet #Prophylaxis -DVT: Heparin 5000u sq tid disposition: monitor in telemetry Visit type - Emergency Visit Emergency Visit: No - New Patient This patient is new to me today: No - Critical Care Critical Care patient: No ATTENDING PHYSICIAN STATEMENT I saw and evaluated the patient. I reviewed the resident's note and discussed the case with the resident. I agree with the resident's findings and plan as documented. SUBJECTIVE: OBJECTIVE: ASSESSMENT AND PLAN:
[2019-12-01 15:07] LABS: ALBUMIN % 3.7 % (.); ALPHA-1 FOR UPE 0.7 % (.); TOTAL PROTEIN, URINE 28.7 mg/dL (Not Estab.)
--- NOTE | 2019-12-01 17:30 | PN ---
Teaching Attending Note Name of Resident: Josue Dias ATTENDING PHYSICIAN STATEMENT I saw and evaluated the patient. I reviewed the resident's note and discussed the case with the resident. I agree with the resident's findings and plan as documented. SUBJECTIVE: patient resting comfortably Still has pain in his axilla, thinks the abscess is getting bigger OBJECTIVE: Vital Signs Period Temp Pulse Resp BP Sys/Chambers Pulse Ox Last 24 Hr 97.7 F-98.9 F 92-102 18-20 111-135/55-75 96-99 GENERAL: Awake, alert, in no acute distress. HEAD: Normal with no signs of trauma. EYES: Pupils equal, round and reactive to light, extraocular movements intact, sclera anicteric, conjunctiva clear. EARS, NOSE, THROAT: Ears normal, nares patent, Moist mucous membranes. NECK: Normal range of motion, No JVD, LUNGS: Breath sounds equal, clear to auscultation bilaterally. No wheezes, and no crackles. No accessory muscle use. HEART: Regular rate and rhythm, normal S1 and S2 without murmur, rub or gallop. ABDOMEN: Soft, nontender, not distended, normoactive bowel sounds, no guarding, no rebound, obese MUSCULOSKELETAL: Normal range of motion at all joints. No bony deformities or tenderness. No CVA tenderness. EXTREMITIES: 2+ pulses, warm, well-perfused. No calf tenderness. No peripheral edema. NEUROLOGICAL: Cranial nerves II-XII intact. Normal speech. PSYCHIATRIC: Cooperative. Good eye contact. Appropriate mood and affect. SKIN: Inguinal and axillary abscess noted ASSESSMENT AND PLAN: 44 y/o M with Hx of HTN, IDDM, who presents with abdominal pain, found to have inguinal abscess. Inguinal Abscess/Axillary Abscess In setting of Hydradinitis Spurativa Continue IV ABx at this time Sx consultation for abscess drainage patient likely needs plastic surgery evaluation as an outpatinet US of Axillary abscess today IDDM Patient needs tight glycemic control continus ISS, FSG Levemir
[2019-12-01 17:44] LABS: 24 HR URINE CREATININE 1041.3 mg/24hr (950-2490)
[2019-12-02] MEDS ORDERED: PIPERACILLIN/TAZOBACTAM 3.375 GM VIAL IVPB ONE ×3 (04:38→17:35)
[2019-12-02] MEDS ORDERED: DEXTROSE 5%-WATER - 50 ML IVPB ONE ×3 (04:38→17:36)
[2019-12-02] MEDS: PIPERACILLIN/TAZOB 3.375 GM 3.375 GM in DEXTROSE 5%-WATER - 50 ML IVPB SCH ×3 (04:41→18:12)
[2019-12-02 07:00] LABS: BASO % 0.5 % (0-2.0); EOS % 1.9 % (0-4.5); HEMATOCRIT 31.4 % (35.4-49); HEMOGLOBIN 10.3 GM/dL (11.7-16.9); LYMPH % 15.4 % (8-40); MCH 27.9 pg (25.7-33.7); MCHC 32.8 g/dl (32.0-35.9); MONO % 6.4 % (3.8-10.2); NEUT % 75.8 % (42.8-82.8); PLATELET COUNT 321 K/MM3 (134-434); RBC 3.69 M/mm3 (4.00-5.60); RDW 13.8 % (11.9-15.9); WHITE BLOOD COUNT 11.4 K/mm3 (4.0-10.0)
[2019-12-02 07:12] LABS: BLOOD UREA NITROGEN 3.3 mg/dL (7-18); CALCIUM 7.2 mg/dL (8.5-10.1); CREATININE 0.6 mg/dL (0.55-1.3); POTASSIUM 3.5 mmol/L (3.5-5.1)
[2019-12-02] MEDS: HEPARIN NA (PORCINE) 5,000 UNITS/ML 1ML VIAL SQ SCH ×2 (07:25→15:52)
[2019-12-02] MEDS: INSULIN SLIDING SCALE (NOVOLOG) 1 VIAL SQ SCH ×5 (07:25→22:20)
[2019-12-02] MEDS: INSULIN (LEVEMIR) 100 UNITS/ML UNITS SQ SCH (07:26)
[2019-12-02] MEDS ORDERED: POTASSIUM CHLORIDE TABS 20 MEQ TABLET.ER (FP) PO ONE (08:33)
[2019-12-02] MEDS ORDERED: PT OWN MED DRAWER 7, Y5N ONE (09:31)
[2019-12-02] MEDS: SODIUM CHLORIDE 0.45% 1,000 ML IV SCH ×2 (09:46→15:52)
[2019-12-02] MEDS: POLYETHYLENE GLYCOL 3350 119 GM BTL PO SCH ×2 (09:47→22:25)
--- NOTE | 2019-12-02 11:43 | PN ---
Progress Note, Physician History of Present Illness: Pt seen and examined. He appears comfortable. - Current Medication List Current Medications: Active Medications Heparin Sodium (Porcine) (Heparin -) 5,000 unit SQ TID [facility] Last Admin: 12/02/19 07:25 Dose: 5,000 unit Documented by: Piperacillin Sod/Tazobactam (Sod 3.375 gm/ Dextrose) 50 mls @ 100 mls/hr IVPB Q8H-IV EDWIGE; Protocol Last Admin: 12/02/19 09:46 Dose: 100 mls/hr Documented by: Sodium Chloride (1/2 Normal Saline) 1,000 mls @ 75 mls/hr IV ASDIR EDWIGE Last Admin: 12/02/19 09:46 Dose: 75 mls/hr Documented by: Insulin Aspart (Novolog Vial Sliding Scale -) 1 vial SQ Q4HWA [facility]; Protocol Last Admin: 12/02/19 10:56 Dose: 10 units Documented by: Insulin Detemir (Levemir Vial) 40 units SQ AM EDWIGE Last Admin: 12/02/19 07:26 Dose: 40 units Documented by: Insulin Detemir (Levemir Vial) 30 units SQ HS EDWIGE Last Admin: 12/01/19 23:31 Dose: 30 units Documented by: Polyethylene Glycol (Miralax (For Daily Use) -) 17 gm PO BID [facility] Last Admin: 12/02/19 09:47 Dose: Not Given Documented by: - Objective Vital Signs: Vital Signs Temperature 98.1 F 12/02/19 01:18 Pulse Rate 98 H 12/02/19 06:00 Respiratory Rate 22 H 12/02/19 06:00 Blood Pressure 135/70 12/02/19 06:00 O2 Sat by Pulse Oximetry (%) 98 12/01/19 08:50 Constitutional: Yes: Calm Eyes: Yes: Conjunctiva Clear HENT: Yes: Atraumatic Neck: Yes: Supple Cardiovascular: Yes: S1, S2 Respiratory: Yes: CTA Bilaterally Gastrointestinal: Yes: Soft, Abdomen, Obese Genitourinary: Yes: WNL Musculoskeletal: Yes: WNL Edema: No Neurological: Yes: Oriented Labs: CBC, BMP 12/02/19 05:55 12/02/19 05:55 INR, PTT INR 1.13 (0.83-1.09) H 11/28/19 07:05 Assessment/Plan Current Medications Generic Name Dose Route Start Last Admin Trade Name Jaye PRN Reason Stop Dose Admin Heparin Sodium (Porcine) 5,000 unit 11/28/19 06:00 12/02/19 07:25 Heparin - SQ 5,000 unit TID EDWIGE Administration Piperacillin Sod/Tazobactam 50 mls @ 100 mls/hr 11/29/19 10:00 12/02/19 09:46 Sod 3.375 gm/ Dextrose IVPB 100 mls/hr Q8H-IV EDWIGE Administration Protocol Sodium Chloride 1,000 mls @ 75 mls/hr 12/01/19 13:39 12/02/19 09:46 1/2 Normal Saline IV 75 mls/hr ASDIR EDWIGE Administration Insulin Aspart 1 vial 11/29/19 22:00 12/02/19 10:56 Novolog Vial Sliding Scale - SQ 10 units Q4HWA EDWIGE Administration Protocol Insulin Detemir 40 units 11/30/19 07:00 12/02/19 07:26 Levemir Vial SQ 40 units AM EDWIGE Administration Insulin Detemir 30 units 11/29/19 22:00 12/01/19 23:31 Levemir Vial SQ 30 units HS EDWIGE Administration Polyethylene Glycol 17 gm 11/28/19 10:00 12/02/19 09:47 Miralax (For Daily Use) - PO Not Given BID [facility] Impression 1. BECCA 2. DM 3. abscess 4. htn Plan - renal function remains stable - can d/c fluids - monitor lytes - pt tolerating diet - will need better glycemic control as outpt, discussed diet and compliance - ua shows neg protein - follow imfx
--- NOTE | 2019-12-02 12:54 | PN ---
Physical Exam: SUBJECTIVE: Patient seen and examined at bedside. No acute events reported overnight. This morning patient states he is feeling better with the hot pack on the abscess. No other concerns or complaints at this time. OBJECTIVE: Vital Signs Period Temp Pulse Resp BP Sys/Chambers Pulse Ox Last 24 Hr 97.8 F-98.5 F 94-107 18-22 126-135/61-79 GENERAL: The patient is awake, alert, and fully oriented, in no acute distress. HEAD: Normal with no signs of trauma. EYES: PERRL, extraocular movements intact, sclera anicteric, conjunctiva clear. No ptosis. ENT: Ears normal, nares patent, oropharynx clear without exudates, moist mucous membranes. NECK: Trachea midline, full range of motion, supple. LUNGS: Breath sounds equal, clear to auscultation bilaterally, no wheezes, no crackles, no accessory muscle use. HEART: Regular rate and rhythm, S1, S2 without murmur, rub or gallop. ABDOMEN: Soft, nontender, nondistended, normoactive bowel sounds, no guarding, no rebound, no hepatosplenomegaly, no masses. EXTREMITIES: 2+ pulses, warm, well-perfused, no edema. NEUROLOGICAL: Cranial nerves II through XII grossly intact. Normal speech, gait not observed. PSYCH: Normal mood, normal affect. SKIN: Warm, dry, normal turgor, no rashes or lesions noted Laboratory Results - last 24 hr CBC, [facility] 12/02/19 05:55 12/02/19 05:55 11/27/19 11/29/19 11/30/19 16:33 06:00 15:40 WBC RBC Hgb Hct MCV MCH MCHC RDW Plt Count MPV Absolute Neuts (auto) Neutrophils % Lymphocytes % Monocytes % Eosinophils % Basophils % Nucleated RBC % VBG pH 7.317 POC VBG pCO2 33.1 L POC VBG pO2 30.0 VBG HCO3 16.6 L VBG O2 Sat (Emmanuel) 52.8 L VBG Base Excess -8.7 L Sodium Potassium Chloride Carbon Dioxide Anion Gap BUN Creatinine Est GFR (CKD-EPI)AfAm Est GFR (CKD-EPI)NonAf POC Glucometer Random Glucose Calcium Albumin % 3.7 Gamma Globulins (%) 46.5 Ur Random Creatinine 39.0 U Random Total Protein 18.4 H Urine Collection Time 24 Urine Total Volume 2670 Urine Creatinine 1041.3 Ur Total Protein 24 Hr 574 H 491 H Urine Total Protein 28.7 U PEP M-Darci TNP U Random MONTSE M-Darci % Not observed Ref Test Comments 12/01/19 12/01/19 12/01/19 15:33 18:08 20:20 WBC RBC Hgb Hct MCV MCH MCHC RDW Plt Count MPV Absolute Neuts (auto) Neutrophils % Lymphocytes % Monocytes % Eosinophils % Basophils % Nucleated RBC % VBG pH POC VBG pCO2 POC VBG pO2 VBG HCO3 VBG O2 Sat (Emmanuel) VBG Base Excess Sodium Potassium Chloride Carbon Dioxide Anion Gap BUN Creatinine Est GFR (CKD-EPI)AfAm Est GFR (CKD-EPI)NonAf POC Glucometer 292 278 276 Random Glucose Calcium Albumin % Gamma Globulins (%) Ur Random Creatinine U Random Total Protein Urine Collection Time Urine Total Volume Urine Creatinine Ur Total Protein 24 Hr Urine Total Protein U PEP M-Darci U Random MONTSE M-Darci % Ref Test Comments 12/02/19 12/02/19 12/02/19 05:55 05:55 07:06 WBC 11.4 H RBC 3.69 L Hgb 10.3 L Hct 31.4 L MCV 85.0 MCH 27.9 MCHC 32.8 RDW 13.8 Plt Count 321 MPV 8.0 Absolute Neuts (auto) 8.6 H Neutrophils % 75.8 Lymphocytes % 15.4 Monocytes % 6.4 Eosinophils % 1.9 Basophils % 0.5 Nucleated RBC % 0 VBG pH POC VBG pCO2 POC VBG pO2 VBG HCO3 VBG O2 Sat (Emmanuel) VBG Base Excess Sodium 140 Potassium 3.5 Chloride 106 Carbon Dioxide 27 Anion Gap 7 L BUN 3.3 L Creatinine 0.6 Est GFR (CKD-EPI)AfAm 139.75 Est GFR (CKD-EPI)NonAf 120.58 POC Glucometer 205 Random Glucose 235 H Calcium 7.2 L Albumin % Gamma Globulins (%) Ur Random Creatinine U Random Total Protein Urine Collection Time Urine Total Volume Urine Creatinine Ur Total Protein 24 Hr Urine Total Protein U PEP M-Darci U Random MONTSE M-Darci % Ref Test Comments 12/02/19 10:49 WBC RBC Hgb Hct MCV MCH MCHC RDW Plt Count MPV Absolute Neuts (auto) Neutrophils % Lymphocytes % Monocytes % Eosinophils % Basophils % Nucleated RBC % VBG pH POC VBG pCO2 POC VBG pO2 VBG HCO3 VBG O2 Sat (Emmanuel) VBG Base Excess Sodium Potassium Chloride Carbon Dioxide Anion Gap BUN Creatinine Est GFR (CKD-EPI)AfAm Est GFR (CKD-EPI)NonAf POC Glucometer 278 Random Glucose Calcium Albumin % Gamma Globulins (%) Ur Random Creatinine U Random Total Protein Urine Collection Time Urine Total Volume Urine Creatinine Ur Total Protein 24 Hr Urine Total Protein U PEP M-Darci U Random MONTSE M-Darci % Ref Test Comments Active Medications Generic Name Dose Route Start Last Admin Trade Name Freq PRN Reason Stop Dose Admin Heparin Sodium (Porcine) 5,000 unit 11/28/19 06:00 12/02/19 07:25 Heparin - SQ 5,000 unit TID EDWIGE Administration Piperacillin Sod/Tazobactam 50 mls @ 100 mls/hr 11/29/19 10:00 12/02/19 09:46 Sod 3.375 gm/ Dextrose IVPB 100 mls/hr Q8H-IV EDWIGE Administration Protocol Sodium Chloride 1,000 mls @ 75 mls/hr 12/01/19 13:39 12/02/19 09:46 1/2 Normal Saline IV 75 mls/hr ASDIR EDWIGE Administration Insulin Aspart 1 vial 11/29/19 22:00 12/02/19 10:56 Novolog Vial Sliding Scale - SQ 10 units Q4HWA EDWIGE Administration Protocol Insulin Detemir 40 units 11/30/19 07:00 12/02/19 07:26 Levemir Vial SQ 40 units AM EDWIGE Administration Insulin Detemir 30 units 11/29/19 22:00 12/01/19 23:31 Levemir Vial SQ 30 units HS EDWIGE Administration Polyethylene Glycol 17 gm 11/28/19 10:00 12/02/19 09:47 Miralax (For Daily Use) - PO Not Given BID [facility] ASSESSMENT/PLAN: 44 y/o male with PMX of HTN, DM2 presenting with 2 weeks of generalized weakness, polyuria, excessive thirst, and lower abdominal pain. Admitted for sepsis secondary to pelvic abscess. #Sepsis Secondary to Pelvic Abscess -CT abdomen/pelvis w/ contrast: possible right lower anterior pelvis wall abscesses, upper thigh abscesses, fatty liver and enlarged inguinal lymph nodes -IV abx: Zosyn -surgery consulted: no plan for operative intervention at this time -abscess culture grew Lactose fermenting negative bacilli, proteus, Group D strep, strep algalactiae -IVF with 1/2 NS -QTc 454 upon admission -avoid QTC prolonging drugs #Axillary Abscess -extremity ultrasound- abscess is 13 x 5.3 x 2 cm -Dr. Sorto reconsulted about abscess- scheduled for abscess drain in the OR tomorrow -f/u abscess cultures for abx management as per Dr. Longoria (ID) -hot pack ordered PRN for the patient to apply on the abscess #BECCA -resolving -Cr 1.6-->1.1-->0.7-->0.6 today -continue IVF on 04/02 NS -nephro- lowered the fluid rate today -renal ultrasound 11/27- negative study -SPEP ordered- pending results -serum protein electrophoresis- pending results -pt will benefit from ACEI/ARB when discharged -Avoid nephrotoxic agents #Diabetes Mellitus -mild DKA upon admission which improved in the ER with IV insulin -curently on 04/02 NSS -continue ISS BGM -HgA1c on 11/28: 14 -endocrine consulted: Dr. Bradshaw recommends Levemir 40 units AM and 30 units hs -diet changed from liquid diabetic diet to solid diabetic diet today #constipation -miralax BID #Hypertension -monitor blood pressure readings -consider lisinopril if hypertensive #FEN -fluids- 1/2NS IVF 75 mls/hr -electrolytes- monitor electrolytes -nutrition- NPO at midnight for procedure tomorrow #Prophylaxis -DVT: Heparin 5000u sq HELD for procedure tomorrow disposition: monitor in telemetry Visit type - Emergency Visit Emergency Visit: No - New Patient This patient is new to me today: No - Critical Care Critical Care patient: No ATTENDING PHYSICIAN STATEMENT I saw and evaluated the patient. I reviewed the resident's note and discussed the case with the resident. I agree with the resident's findings and plan as documented. SUBJECTIVE: OBJECTIVE: ASSESSMENT AND PLAN:
--- NOTE | 2019-12-02 15:36 | PN ---
Teaching Attending Note Name of Resident: Josue Dias ATTENDING PHYSICIAN STATEMENT I saw and evaluated the patient. I reviewed the resident's note and discussed the case with the resident. I agree with the resident's findings and plan as documented. SUBJECTIVE: Patient states that his axillary area feels well. OBJECTIVE: Vital Signs Period Temp Pulse Resp BP Sys/Chambers Pulse Ox Last 24 Hr 98 F-98.5 F 94-107 18-22 126-135/61-79 GENERAL: Awake, alert, in no acute distress. HEAD: Normal with no signs of trauma. EYES: Pupils equal, round and reactive to light, extraocular movements intact, sclera anicteric, conjunctiva clear. EARS, NOSE, THROAT: Ears normal, nares patent, Moist mucous membranes. NECK: Normal range of motion, No JVD, LUNGS: Breath sounds equal, clear to auscultation bilaterally. No wheezes, and no crackles. No accessory muscle use. HEART: Regular rate and rhythm, normal S1 and S2 without murmur, rub or gallop. ABDOMEN: Soft, nontender, not distended, normoactive bowel sounds, no guarding, no rebound, obese MUSCULOSKELETAL: Normal range of motion at all joints. No bony deformities or tenderness. No CVA tenderness. EXTREMITIES: 2+ pulses, warm, well-perfused. No calf tenderness. No peripheral edema. NEUROLOGICAL: Cranial nerves II-XII intact. Normal speech. PSYCHIATRIC: Cooperative. Good eye contact. Appropriate mood and affect. SKIN: Inguinal and axillary abscess noted ASSESSMENT AND PLAN: 44 y/o M with Hx of HTN, IDDM, who presents with abdominal pain, found to have inguinal abscess. Inguinal Abscess/Axillary Abscess In setting of Likely Hydradinitis Spurativa Continue IV ABx at this time, can deescalate pending ID recs Sx consultation for abscess drainage, Pain swelling improved today Abscess appears 13x5x2 and complex, may need drainage patient likely needs plastic surgery evaluation as an outpatinet IDDM Patient needs tight glycemic control Discussed today that basal/bolus regimen would be better to control his BG. patient stated that he would not want to inject himself 4x/day. Will attempt to manage with BID long acting medications with PO medications I advised that his Bg goal is 100-140 at home, but its unlikely that we will get there with BID regimen Plan to get BG <250 prior to discharge continus ISS, FSG Levemir BID increase based on Sliding scale measurements
[2019-12-02] MEDS ORDERED: INSULIN (LEVEMIR) 100 UNITS/ML UNITS SQ SCH (22:00)
[2019-12-03] MEDS ORDERED: INSULIN (LEVEMIR) 100 UNITS/ML UNITS SQ SCH (00:56)
[2019-12-03] MEDS ORDERED: DEXTROSE 5%-WATER - 50 ML IVPB ONE ×3 (01:01→17:30)
[2019-12-03] MEDS ORDERED: PIPERACILLIN/TAZOBACTAM 3.375 GM VIAL IVPB ONE ×4 (01:01→23:59)
[2019-12-03] MEDS: PIPERACILLIN/TAZOB 3.375 GM 3.375 GM in DEXTROSE 5%-WATER - 50 ML IVPB SCH ×3 (02:14→18:06)
[2019-12-03 06:48] LABS: BASO % 0.4 % (0-2.0); EOS % 2.1 % (0-4.5); HEMATOCRIT 31.9 % (35.4-49); HEMOGLOBIN 10.4 GM/dL (11.7-16.9); LYMPH % 17.7 % (8-40); MCH 27.7 pg (25.7-33.7); MCHC 32.5 g/dl (32.0-35.9); MEAN CELL VOLUME 85.2 fl (80-96); MEAN PLT VOLUME 7.5 fl (7.5-11.1); MONO % 8.5 % (3.8-10.2); NEUT % 71.3 % (42.8-82.8); PLATELET COUNT 332 K/MM3 (134-434); RBC 3.75 M/mm3 (4.00-5.60); RDW 14.2 % (11.9-15.9); WHITE BLOOD COUNT 10.1 K/mm3 (4.0-10.0)
[2019-12-03] MEDS: INSULIN (LEVEMIR) 100 UNITS/ML UNITS SQ SCH (06:48)
[2019-12-03] MEDS: INSULIN SLIDING SCALE (NOVOLOG) 1 VIAL SQ SCH ×5 (06:53→21:58)
[2019-12-03 07:09] LABS: INR 0.99 (0.83-1.09); PROTHROMBIN TIME (PATIENT) 11.7 SEC (9.7-13.0)
[2019-12-03 07:18] LABS: BLOOD UREA NITROGEN 3.7 mg/dL (7-18); CALCIUM 7.6 mg/dL (8.5-10.1); CREATININE 0.7 mg/dL (0.55-1.3); POTASSIUM 3.7 mmol/L (3.5-5.1)
[2019-12-03] MEDS ORDERED: INSULIN (NOVOLOG) ASPART 100 UNITS/ML 10ML VIAL ONE ×2 (07:43→14:21)
[2019-12-03] MEDS: POLYETHYLENE GLYCOL 3350 119 GM BTL PO SCH ×2 (10:12→22:06)
--- NOTE | 2019-12-03 11:24 | PN ---
Progress Note (short form) - Note Progress Note: Attending Surgeon Seen in f/u; he has no c/o today w/r/t/his axilla VSS AF right axilla-soft and non tender; mild serous drainage and chronic induration ; o/w negative WBC 10.1 IMP: no evidence of active ABSSSI of the right axilla amenable to drainage PLAN: prn f/u. Óscar Sorto MD FACS
--- NOTE | 2019-12-03 13:15 | PN ---
Teaching Attending Note Name of Resident: Josue Dias ATTENDING PHYSICIAN STATEMENT I saw and evaluated the patient. I reviewed the resident's note and discussed the case with the resident. I agree with the resident's findings and plan as documented. SUBJECTIVE: patient reports his axillary pain is better Plan for OR for abscess drainage today OBJECTIVE: Vital Signs Period Temp Pulse Resp BP Sys/Chambers Pulse Ox Last 24 Hr 97.5 F-98.1 F 99-104 20-22 110-141/53-89 98-99 GENERAL: Awake, alert, in no acute distress. HEAD: Normal with no signs of trauma. EYES: Pupils equal, round and reactive to light, extraocular movements intact, sclera anicteric, conjunctiva clear. EARS, NOSE, THROAT: Ears normal, nares patent, Moist mucous membranes. NECK: Normal range of motion, No JVD, LUNGS: Breath sounds equal, clear to auscultation bilaterally. No wheezes, and no crackles. No accessory muscle use. HEART: Regular rate and rhythm, normal S1 and S2 without murmur, rub or gallop. ABDOMEN: Soft, nontender, not distended, normoactive bowel sounds, no guarding, no rebound, obese MUSCULOSKELETAL: Normal range of motion at all joints. No bony deformities or tenderness. No CVA tenderness. EXTREMITIES: 2+ pulses, warm, well-perfused. No calf tenderness. No peripheral edema. NEUROLOGICAL: Cranial nerves II-XII intact. Normal speech. PSYCHIATRIC: Cooperative. Good eye contact. Appropriate mood and affect. SKIN: Inguinal and axillary abscess noted ASSESSMENT AND PLAN: 44 y/o M with Hx of HTN, IDDM, who presents with abdominal pain, found to have inguinal abscess. Inguinal Abscess/Axillary Abscess In setting of suspected Hydradinitis Spurativa Continue IV ABx at this time, can deescalate pending ID recs Plan for OR debridement today Curative would involve resection and skin grafting IDDM Patient needs tight glycemic control to help prevent infections/ promote healing Increased Levemir at this time Patient not amenable to basal/bolus Continue ISS, FSG
[2019-12-03] MEDS: SODIUM CHLORIDE 0.45% 1,000 ML IV SCH (14:26)
--- NOTE | 2019-12-03 15:33 | DS ---
Physical Exam: SUBJECTIVE: Patient seen and examined OBJECTIVE: Vital Signs Period Temp Pulse Resp BP Sys/Chambers Pulse Ox Last 24 Hr 97.5 F-98.1 F 99-104 20-22 110-141/56-89 98-99 PHYSICAL EXAM GENERAL: The patient is awake, alert, and fully oriented, in no acute distress. HEAD: Normal with no signs of trauma. EYES: PERRL, extraocular movements intact, sclera anicteric, conjunctiva clear. ENT: Ears normal, nares patent, oropharynx clear without exudates, moist mucous membranes. NECK: Trachea midline, full range of motion, supple. LUNGS: Breath sounds equal, clear to auscultation bilaterally, no wheezes, no crackles, no accessory muscle use. HEART: Regular rate and rhythm, S1, S2 without murmur, rub or gallop. ABDOMEN: Soft, nontender, nondistended, normoactive bowel sounds, no guarding, no rebound, no hepatosplenomegaly, no masses. EXTREMITIES: 2+ pulses, warm, well-perfused, no edema. NEUROLOGICAL: Cranial nerves II through XII grossly intact. Normal speech, gait not observed. PSYCH: Normal mood, normal affect. SKIN: Warm, dry, normal turgor, no rashes or lesions noted. LABS Laboratory Results - last 24 hr CBC, BMP 12/03/19 06:00 12/03/19 06:00 12/02/19 12/02/19 12/02/19 15:50 17:46 22:11 WBC RBC Hgb Hct MCV MCH MCHC RDW Plt Count MPV Absolute Neuts (auto) Neutrophils % Lymphocytes % Monocytes % Eosinophils % Basophils % Nucleated RBC % PT with INR INR Sodium Potassium Chloride Carbon Dioxide Anion Gap BUN Creatinine Est GFR (CKD-EPI)AfAm Est GFR (CKD-EPI)NonAf POC Glucometer 345 315 282 Random Glucose Calcium 12/03/19 12/03/19 12/03/19 06:00 06:00 06:00 WBC 10.1 H RBC 3.75 L Hgb 10.4 L Hct 31.9 L MCV 85.2 MCH 27.7 MCHC 32.5 RDW 14.2 Plt Count 332 MPV 7.5 Absolute Neuts (auto) 7.2 Neutrophils % 71.3 Lymphocytes % 17.7 Monocytes % 8.5 Eosinophils % 2.1 Basophils % 0.4 Nucleated RBC % 0 PT with INR 11.70 INR 0.99 Sodium 140 Potassium 3.7 Chloride 106 Carbon Dioxide 26 Anion Gap 8 BUN 3.7 L Creatinine 0.7 Est GFR (CKD-EPI)AfAm 131.17 Est GFR (CKD-EPI)NonAf 113.17 POC Glucometer Random Glucose 230 H Calcium 7.6 L 12/03/19 12/03/19 12/03/19 06:07 10:59 14:11 WBC RBC Hgb Hct MCV MCH MCHC RDW Plt Count MPV Absolute Neuts (auto) Neutrophils % Lymphocytes % Monocytes % Eosinophils % Basophils % Nucleated RBC % PT with INR INR Sodium Potassium Chloride Carbon Dioxide Anion Gap BUN Creatinine Est GFR (CKD-EPI)AfAm Est GFR (CKD-EPI)NonAf POC Glucometer 215 187 272 Random Glucose Calcium HOSPITAL COURSE: 44 y/o male with PMX of HTN, DM2 presenting with 2 weeks of generalized weakness, polyuria, excessive thirst, and lower abdominal pain. Admitted for sepsis secondary to pelvic abscess. CT abdomen/pelvis w/ contrast upon admission showed possible right lower anterior pelvis wall abscesses, upper thigh abscesses, fatty liver and enlarged inguinal lymph nodes. Patient was started on IV abx Zosyn. Surgery was consulted about the inguinal abscess and they said that they had no plan for operative intervention at this time. Inguinal abscess culture grew Lactose fermenting negative bacilli, proteus, Group D strep, strep algalactiae. Patient developed a new axillary abscess during the course of his admission. Ultrasound of the abscess showed that the abscess was 13 x 5.3 x 2 cm in size and surgery was reconsulted for the axillary abscess. Surgery was amenable to drain the abscess in the OR but on the morning of the surgery (12/02) the patient reports that he was feeling better and that the abscess had started to resolve on it's own after application of hot compress. Patient also had a mild DKA upon admission which improved in the ER with IV insulin. Patient had downtrending Cr throughout his hospital course. Patient was on 1/2 NS, ISS with BGM throughout his hospital course. HgA1c upon admission was 14. Patient was not amenable to multiple insulin injections and was discharged on Levemir 50 units SQ AM with followup with Dr. Bradshaw, endocrinology, recommended. Patient also was on miralax BID for constipation throughout his stay. Received Heparin SQ for DVT prophylaxis throughout his stay. Date of Admission:11/27/19 11/27/2019-portable CXR-Single view of the chest has been submitted. The soft tissues appear excessive. There is a prominent heart, normal aorta, prominent mann but no sign of infiltrate or failure. The angles are sharp. The soft tissues are intact. An acute process is not seen. 11/27/2019-EKG- Sinus tachycardia, low voltage QRS 11/27/2019-CT abdomen/pelvis w/ contrast- Multiple superficial subcutaneous densities are seen along the right lower anterior pelvis wall, right upper thigh ventrally and along the bilateral upper thighs medially consistent with regions of inflammation and possible abscess formation. The maximum diameter of these lesions is approximately 3 cm 11/28/2019-kidney/renal US- IMPRESSION: Negative study 12/02/2019-right upper extremity US- Within the right axilla note is made of a complex fluid collection measuring approximately 13 x 5.3 x 2 cm. Date of Discharge: 12/03/19 Minutes to complete discharge: 36 Discharge Summary Problems reviewed: Yes Reason For Visit: HYPERGLYCEMIA,SEPSIS Current Active Problems BECCA (acute kidney injury) (Acute) Hyperglycemia (Acute) Infection (Acute) Sepsis (Acute) Type 2 diabetes mellitus with other diabetic arthropathy (Acute) Condition: Stable - Instructions Diet, Activity, Other Instructions: Your visit: You were admitted to the hospital for increased thirst, increased urination, and abscesses. You were found to have Diabetes that was uncontrolled and an abscess in your groin and armpit. You were treated with antibiotics, insulin, and drainage of your abscess in your groin with improvement of your symptoms. -We did a scan of your abdomen which demonstrated a fatty liver. Please follow up with your Primary Care Physician about this. -We did a scan of your pelvis which demonstrated urinary bladder wall thickening. Please follow up with your Primary Care Physician about this. Medications changes: -Please take the antibiotic, Augmentin 875 mg 1 pill TWICE A DAY for 10 DAYS. -Start using Levemir 50 Units once in the morning for your diabetes. We will send you a blood sugar monitor to check your sugars at home. -Continue to take all other home medications as prescribed. Follow up: - Please follow-up with Dr. Bradshaw, your strategic planner in 1 week. - Please follow-up with Dr. Longoria, your infectious disease doctor in 2 week. - Please follow-up with Dr. Spivey, your machine printer in 2 week. - Visit with your Primary Care Provider in 2 weeks. If you do not have a primary care provider you may make an appointment with Dr. Mack at the [facility] clinic located at [address] [place] [address] ([phone]). Additional Instructions: -You are being discharged to your home. -Please return to the Emergency Department if you experience worsening pain, fevers, chills, shortness of breath, or chest pain, or if you experience any worsening, new or concerning symptoms. Referrals: Kingsley Mack MD [Staff Physician] - 1 Week Pratik Longoria MD [Staff Physician] - 2 Weeks Ruddy Bradshaw MD [Staff Physician] - 1 Week Luz Maria Spivey MD [Staff Physician] - 2 Weeks Disposition: HOME - Home Medications Comprehensive Discharge Medication List: Ambulatory Orders Amox-Tr/K Cl [Augmentin - 875Mg Tablet] 1 tab PO BID 10 Days #20 tablet 12/03/19 Insulin (Levemir) [Levemir Vial] 50 unit SQ AM #1 vial 12/03/19 This patient is new to me today: No Emergency Visit: No Critical Care patient: No - Discharge Referral Referred to [facility] No ATTENDING PHYSICIAN STATEMENT I saw and evaluated the patient. I reviewed the resident's note and discussed the case with the resident. I agree with the resident's findings and plan as documented. SUBJECTIVE: OBJECTIVE: ASSESSMENT AND PLAN:
--- NOTE | 2019-12-03 16:26 | PN ---
Progress Note, Physician History of Present Illness: Pt seen and examined at bedside. He is awake and alert. he has no complaints. - Current Medication List Current Medications: Active Medications Heparin Sodium (Porcine) (Heparin -) 5,000 unit SQ TID [facility] Last Admin: 12/02/19 15:52 Dose: 5,000 unit Documented by: Piperacillin Sod/Tazobactam (Sod 3.375 gm/ Dextrose) 50 mls @ 100 mls/hr IVPB Q8H-IV EDWIGE; Protocol Last Admin: 12/03/19 10:11 Dose: 100 mls/hr Documented by: Sodium Chloride (1/2 Normal Saline) 1,000 mls @ 75 mls/hr IV ASDIR EDWIGE Last Admin: 12/03/19 14:26 Dose: 75 mls/hr Documented by: Insulin Aspart (Novolog Vial Sliding Scale -) 1 vial SQ Q4HWA [facility]; Protocol Last Admin: 12/03/19 14:27 Dose: 10 units Documented by: Insulin Detemir (Levemir Vial) 45 units SQ AM [facility] Last Admin: 12/03/19 06:48 Dose: Not Given Documented by: Insulin Detemir (Levemir Vial) 35 units SQ HS [facility] Polyethylene Glycol (Miralax (For Daily Use) -) 17 gm PO BID [facility] Last Admin: 12/03/19 10:12 Dose: Not Given Documented by: - Objective Vital Signs: Vital Signs Temperature 98.1 F 12/03/19 10:00 Pulse Rate 101 H 12/03/19 10:00 Respiratory Rate 22 H 12/03/19 10:00 Blood Pressure 135/64 12/03/19 10:00 O2 Sat by Pulse Oximetry (%) 98 12/03/19 10:00 Constitutional: Yes: Calm Eyes: Yes: Conjunctiva Clear HENT: Yes: Atraumatic Neck: Yes: Supple Cardiovascular: Yes: S1, S2 Respiratory: Yes: CTA Bilaterally Gastrointestinal: Yes: Normal Bowel Sounds, Soft, Abdomen, Obese Genitourinary: Yes: WNL Musculoskeletal: Yes: WNL Edema: No Neurological: Yes: Oriented Psychiatric: Yes: Oriented Labs: CBC, BMP 12/03/19 06:00 12/03/19 06:00 INR, PTT INR 0.99 (0.83-1.09) 12/03/19 06:00 Assessment/Plan Current Medications Generic Name Dose Route Start Last Admin Trade Name Jaye PRN Reason Stop Dose Admin Heparin Sodium (Porcine) 5,000 unit 11/28/19 06:00 12/02/19 15:52 Heparin - SQ 5,000 unit TID EDWIGE Administration Piperacillin Sod/Tazobactam 50 mls @ 100 mls/hr 11/29/19 10:00 12/03/19 10:11 Sod 3.375 gm/ Dextrose IVPB 100 mls/hr Q8H-IV EDWIGE Administration Protocol Sodium Chloride 1,000 mls @ 75 mls/hr 12/01/19 13:39 12/03/19 14:26 1/2 Normal Saline IV 75 mls/hr ASDIR EDWIGE Administration Insulin Aspart 1 vial 12/03/19 00:55 12/03/19 14:27 Novolog Vial Sliding Scale - SQ 10 units Q4HWA [facility] Administration Protocol Insulin Detemir 45 units 12/03/19 00:55 12/03/19 06:48 Levemir Vial SQ Not Given AM EDWIGE Insulin Detemir 35 units 12/03/19 00:56 Levemir Vial SQ HS [facility] Polyethylene Glycol 17 gm 11/28/19 10:00 12/03/19 10:12 Miralax (For Daily Use) - PO Not Given BID [facility] Laboratory Tests 11/27/19 11/27/19 11/28/19 16:33 19:55 02:31 Sodium Creatinine 1.6 H 1.5 H Hemoglobin A1c % Urine Creatinine Protein/Creatinin Ratio 0.9 11/29/19 11/29/19 11/30/19 07:03 07:03 06:06 Sodium 137 135 L Creatinine 1.1 0.7 Hemoglobin A1c % 14.0 H Urine Creatinine Protein/Creatinin Ratio 11/30/19 15:40 Sodium Creatinine Hemoglobin A1c % Urine Creatinine 1041.3 Protein/Creatinin Ratio Impression 1. BECCA 2. DM 3. abscess 4. htn Plan - can stop fluids - glucose control - discussed diet and glucose control - outpt follow up - follow imfx
--- NOTE | 2019-12-03 20:39 | PN ---
Progress Note (short form) - Note Progress Note: improved glycemic control on insulin dose titration will need outpatient follow up levemir q am 50units and continue antibiotic oral will obtain glucometer and testing supplies \wound care for 1 iweek outpatient follow up Problem List - Problems (1) Type 2 diabetes mellitus with other diabetic arthropathy Code(s): E11.618 - TYPE 2 DIABETES MELLITUS WITH OTHER DIABETIC ARTHROPATHY (2) BECCA (acute kidney injury) Code(s): N17.9 - ACUTE KIDNEY FAILURE, UNSPECIFIED (3) Hyperglycemia Code(s): R73.9 - HYPERGLYCEMIA, UNSPECIFIED (4) Infection Code(s): B99.9 - UNSPECIFIED INFECTIOUS DISEASE (5) Sepsis Code(s): A41.9 - SEPSIS, UNSPECIFIED ORGANISM Qualifiers: Sepsis type: sepsis due to unspecified organism Sepsis acute organ dysfunction status: unspecified Qualified Code(s): A41.9 - Sepsis, unspecified organism
[2019-12-03] MEDS: HEPARIN NA (PORCINE) 5,000 UNITS/ML 1ML VIAL SQ SCH (21:57)
[2019-12-03 23:49] VITALS: TEMP 97.5
[2019-12-04] MEDS: PIPERACILLIN/TAZOB 3.375 GM 3.375 GM in DEXTROSE 5%-WATER - 50 ML IVPB SCH ×2 (01:00→10:05)
[2019-12-04] MEDS: INSULIN SLIDING SCALE (NOVOLOG) 1 VIAL SQ SCH ×2 (06:22→10:25)
[2019-12-04] MEDS: HEPARIN NA (PORCINE) 5,000 UNITS/ML 1ML VIAL SQ SCH (06:25)
[2019-12-04] MEDS: INSULIN (LEVEMIR) 100 UNITS/ML UNITS SQ SCH (06:26)
[2019-12-04 06:34] VITALS: BP 95/71; PULSE 95
[2019-12-04] MEDS ORDERED: INSULIN (NOVOLOG) ASPART 100 UNITS/ML 10ML VIAL ONE ×2 (07:43→10:20)
[2019-12-04] MEDS ORDERED: PIPERACILLIN/TAZOBACTAM 3.375 GM VIAL IVPB ONE (08:49)
[2019-12-04] MEDS ORDERED: DEXTROSE 5%-WATER - 50 ML IVPB ONE ×2 (08:49)
[2019-12-04] MEDS: POLYETHYLENE GLYCOL 3350 119 GM BTL PO SCH (10:04)
== END 2019-12-04 12:50 | disposition home or self-care (01) | DRG 720 ==
LOC: JER 14:38 → JERBED 17:52 → J4S 11-28 00:20 → J4W 12-01 08:26
PROVIDERS: ADMIT Internal Medicine; ATTEND Internal Medicine
PROC: 0Y9J0ZX Drainage of Left Lower Leg, Open Approach, Diagnostic (ICD-10-PCS; principal; 2019-11-27)
PROC: 0Y9H0ZX Drainage of Right Lower Leg, Open Approach, Diagnostic (ICD-10-PCS; 2019-11-27)
DX: A41.89 Other specified sepsis (principal); N17.9 Acute kidney failure, unspecified; L02.412 Cutaneous abscess of left axilla; L02.211 Cutaneous abscess of abdominal wall; L02.416 Cutaneous abscess of left lower limb; L02.415 Cutaneous abscess of right lower limb; E11.618 Type 2 diabetes mellitus with other diabetic arthropathy; E11.65 Type 2 diabetes mellitus with hyperglycemia; E88.09 Other disorders of plasma-protein metabolism, not elsewhere classified; E66.01 Morbid (severe) obesity due to excess calories; E46 Unspecified protein-calorie malnutrition; Z68.43 Body mass index [BMI] 50.0-59.9, adult; R00.0 Tachycardia, unspecified; L73.2 Hidradenitis suppurativa; K59.00 Constipation, unspecified; E83.39 Other disorders of phosphorus metabolism; B35.1 Tinea unguium; E83.42 Hypomagnesemia; E86.0 Dehydration; K76.0 Fatty (change of) liver, not elsewhere classified
CPT/HCPCS: 36415; 71045-TC-FY; 74177-TC; 76775-TC; 76882-TC-RT-FY; 80048; 80053; 81003; 82010; 82436; 82565; 82570; 82803; 82962; 83036; 83605; 83735; 84100; 84133; 84155; 84156; 84165; 84166; 84300; 84484; 85025; 85610; 85730; 86850; 86900; 86901; 87040; 87070; 87076; 87077; 87086; 87186; 87205; 93005; 93010; 97116-GP; 97161-GP; 99285-25; J1644; U0003

== ENCOUNTER 2020-09-22 14:23 | Emergency (ER) | payer OTHER ==
[2020-09-22 14:41] VITALS: TEMP 98.6; BMI 51.5
[2020-09-22] MEDS ORDERED: SODIUM CHLORIDE 1,000 ML IV SCH (15:00)
[2020-09-22 16:52] LABS: VENOUS BASE EXCESS 1.7 mmol/L (-2-2); VENOUS O2 SATURATION 72.8 % (70-80); VENOUS PCO2 52.3 mmHg (38-52); VENOUS PH 7.352 (7.310-7.410)
[2020-09-22 16:54] LABS: BASO % 0.9 % (0-2.0); EOS % 2.2 % (0-4.5); HEMOGLOBIN 13.2 GM/dL (11.7-16.9); LYMPH % 22.4 % (8-40); MCH 27.6 pg (25.7-33.7); MCHC 33.1 g/dl (32.0-35.9); MEAN CELL VOLUME 83.4 fl (80-96); MEAN PLT VOLUME 8.2 fl (7.5-11.1); MONO % 5.5 % (3.8-10.2); PLATELET COUNT 510 10^3/uL (134-434); RDW 13.5 % (11.9-15.9); WHITE BLOOD COUNT 11.1 K/mm3 (4.0-10.0)
[2020-09-22 17:15] LABS: CHLORIDE 97 mmol/L (98-107); SODIUM 132 mmol/L (136-145)
[2020-09-22 17:18] LABS: BLOOD UREA NITROGEN 14.4 mg/dL (7-18); CALCIUM 9.3 mg/dL (8.5-10.1); CO2 29 mmol/L (21-32); GLUCOSE,RANDOM 379 mg/dL (74-106)
[2020-09-22 17:21] LABS: SGOT/AST 38 U/L (15-37); SGPT/ALT 18 U/L (13-61)
[2020-09-22 17:22] LABS: CREATININE 1.1 mg/dL (0.55-1.3)
[2020-09-22 17:23] LABS: ALK PHOS 106 U/L (45-117); BILIRUBIN,TOTAL 0.4 mg/dL (0.2-1); TOT PROT 9.6 g/dl (6.4-8.2)
[2020-09-22 17:31] LABS: ANION GAP 6 MMOL/L (8-16)
[2020-09-22 21:34] LABS: PH,URINE 5.5 (5.0-8.0); URINE APPEARANCE CLEAR; URINE BILIRUBIN NEGATIVE (NEGATIVE); URINE COLOR YELLOW; URINE GLUCOSE (UA) 3+ (NEGATIVE); URINE KETONE TRACE (NEGATIVE); URINE LEUK ESTERASE NEGATIVE (NEGATIVE); URINE NITRITE NEGATIVE (NEGATIVE); URINE PROTEIN NEGATIVE (NEGATIVE); URINE UROBILINOGEN 0.2 mg/dL (0.2-1.0)
[2020-09-22 22:14] VITALS: BP 129/69; PULSE 85
== END 2020-09-22 22:42 | disposition home or self-care (01) ==
LOC: JER 14:23
DX: E11.65 Type 2 diabetes mellitus with hyperglycemia (principal)
CPT/HCPCS: 36415; 71045-TC-FY; 80053; 81003; 82010; 82803; 82962; 84132; 85025; 87086; 93005; 93010; 99284-25